=== PATIENT | female | born 1965 | race Caucasian/White ===

== ENCOUNTER 2018-03-24 12:19 | Observation (INO) | payer OTHER ==
[2018-03-24 12:28] VITALS: BMI 23.6
--- NOTE | 2018-03-24 12:49 | PDOC ---
History of Present Illness - General Chief Complaint: Palpitations Stated Complaint: PALPITATIONS, LT ARM NUMBNESS Time Seen by Provider: 03/24/18 12:49 History Source: Patient Exam Limitations: No Limitations - History of Present Illness Initial Comments: 03/24/18 13:13 CHIEF COMPLAINT: Chest pain HISTORY OF PRESENT ILLNESS: This is a 52-year-old female, current smoker with [id number] diabetes and hypercholesterolemia who presents complaining of 3 days of chest pain, left arm numbness, palpitations, and intermittent headaches. She reports that symptoms became much worse last night. She denies shortness of breath, focal weakness, change in speech or facial symmetry, or any other symptoms. She does report bilateral leg "cramping" worse with walking. She denies recent travel,/trauma/surgery. She has no family history of heart disease, CVA, or hypercoagulable state. Vital signs on arrival notable only for mild hypertension: 141/92. Patient's PCP is Dr. Samuels. She saw him in the office today and he sent her to the ED for further evaluation. 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 No weakness. No weight change. HEAD, EYES, EARS, NOSE AND THROAT: No change in vision. No ear pain or discharge. No sore throat. CARDIOVASCULAR: Chest pain, palpitations. RESPIRATORY: No cough, wheezing, or shortness of breath. GASTROINTESTINAL: No nausea, vomiting, diarrhea or constipation. GENITOURINARY: No dysuria, frequency, or change in urination. MUSCULOSKELETAL: No joint or muscle swelling or pain. No neck or back pain. SKIN: No rash or easy bruising. NEUROLOGIC: Intermittent, generalized headaches. Left arm numbness. vertigo, loss of consciousness, or loss of sensation. PSYCHIATRIC: No depression or anxiety. ENDOCRINE: No increased thirst. No abnormal weight change. HEMATOLOGIC/LYMPHATIC: No anemia, easy bleeding, or history of blood clots. ALLERGIC/IMMUNOLOGIC: No hives or skin allergy. No latex allergy. PHYSICAL EXAM: GENERAL: The patient is awake, alert, and fully oriented, in no acute distress. ENT: Pupils equal, round and reactive to light, extraocular movements intact, sclera anicteric, conjunctiva clear. Neck supple. LUNGS: Clear to auscultation bilaterally. Normal excursion. No respiratory distress or use of accessory muscles. CV: RRR, S1/S2, no MRG. Cap refill < 2 sec. ABDOMEN: Soft, non-distended, non-tender. EXTREMITIES: Normal range of motion, no edema. NEUROLOGICAL: Normal speech, normal gait. CN II-XII grossly intact. NIHSS=1 ( subjective decreased sensation left arm). PSYCH: Normal mood, normal affect. SKIN: Warm, dry, normal turgor, no rashes or lesions noted. Past History - Past Medical History Allergies/Adverse Reactions: Allergies Allergy/AdvReac Type Severity Reaction Status Date / Time No Known Drug Allergies Allergy Verified 03/24/18 12:28 Home Medications: Ambulatory Orders Atorvastatin Calcium 20 mg PO DAILY 03/24/18 Metformin HCl [Glucophage] 500 mg PO DAILY 03/24/18 COPD: No Diabetes: Yes (type 2) Disorders: Yes (kidney stones) HTN: Yes Hypercholesterolemia: Yes Kidney Stones: Yes - Surgical History Abdominal Surgery: Yes - Immunization History Immunization Up to Date: Yes - Suicide/Smoking/Psychosocial Hx Smoking Status: No Smoking History: Current every day smoker Have you smoked in the past 12 months: Yes Number of Cigarettes Smoked Daily: 5 Information on smoking cessation initiated: No 'Breaking Loose' booklet given: 06/14/15 Hx Alcohol Use: No Drug/Substance Use Hx: No Substance Use Type: None Hx Substance Use Treatment: No *Physical Exam - Vital Signs Last Vital Signs Temp Pulse Resp BP Pulse Ox 97.8 F 78 18 142/91 99 03/24/18 12:25 03/24/18 12:25 03/24/18 12:25 03/24/18 12:25 03/24/18 12:25 Heart Score/ECG Review - History History: Slightly suspicious - Electrocardiogram EKG: Normal - Age Age: 45-65 - Risk Factors Risk Factors Heart Score: Yes Hx Hypercholesterolemia, Yes Hx Diabetes, Yes Smoking History Based on the list above the patient has:: >/=3 risk factors or Hx atherosclerotic disease - Troponin Troponin: </= normal limit - Score Heart Score - Total: 3 - ECG Intrepretation Comment:: 03/24/18 13:43 Normal sinus rhythm, [address] or T-wave changes. ED Treatment Course - LABORATORY CBC & Chemistry Diagram: 03/24/18 13:09 03/24/18 13:09 Medical Decision Making - Medical Decision Making 03/24/18 13:18 A/P: 52 year old female with multiple symptoms including chest pain, left arm numbness, palpitations, pleuritic pain, and headaches. NIHSS=1, onset x 3 days ago. Multiple cardiac RFs. 1. EKG 2. Labs including CBC, CMP, TSH, PT/INR, troponin, d-dimer (low risk by Wells), UA 3. CXR 4. CT brain 5. Re-evaluate 03/24/18 14:07 Trop neg x 1. 03/24/18 14:31 CT brain neg. CXR neg. 03/24/18 15:41 UA neg. 03/24/18 15:43 Given multiple RFs, will request observation to complete MELY. D-dimer is pending (QC issue with lab) and will need to be followed up. *DC/Admit/Observation/Transfer Diagnosis at time of Disposition: Left arm numbness, Palpitations Chest pain Qualifiers: Chest pain type: precordial pain Qualified Code(s): R07.2 - Precordial pain - Discharge Dispostion Condition at time of disposition: Guarded Decision to Admit order: Yes - Referrals Referrals: Stefania Samuels [Primary Care Provider] - - Patient Instructions - Post Discharge Activity
[2018-03-24 13:24] LABS: BASO % 0.7 % (0-2.0); EOS % 1.6 % (0-4.5); HEMATOCRIT 31.4 % (32.4-45.2); HEMOGLOBIN 10.2 GM/dL (10.7-15.3); LYMPH % 40.1 % (8-40); MCH 26.9 pg (25.7-33.7); MCHC 32.3 g/dl (32.0-36.0); MEAN CELL VOLUME 83.4 fl (80-96); MEAN PLT VOLUME 7.1 fl (7.5-11.1); NEUT % 51.6 % (42.8-82.8); PLATELET COUNT 316 K/MM3 (134-434); RBC 3.77 M/mm3 (3.60-5.2); WHITE BLOOD COUNT 7.6 K/mm3 (4.0-10.0)
[2018-03-24 13:38] LABS: INR 0.93 (0.83-1.09); PROTHROMBIN TIME (PATIENT) 10.5 SEC (9.7-13.0)
[2018-03-24 13:46] LABS: ALBUMIN 3.8 g/dl (3.4-5.0); ALK PHOS 96 U/L (45-117); ANION GAP 5 (8-16); BILIRUBIN,TOTAL 0.2 mg/dL (0.2-1.0); BLOOD UREA NITROGEN 12 mg/dL (7-18); CALCIUM 9.1 mg/dL (8.5-10.1); CHLORIDE 107 mmol/L (98-107); CO2 28 mmol/L (21-32); CREATININE 0.7 mg/dL (0.55-1.02); GLUCOSE,RANDOM 87 mg/dL (74-106); POTASSIUM 4.1 mmol/L (3.5-5.1); SGOT/AST 20 U/L (15-37); SGPT/ALT 25 U/L (12-78); SODIUM 140 mmol/L (136-145); TOT PROT 7.3 g/dl (6.4-8.2)
--- NOTE | 2018-03-24 14:33 | PDOC ---
*Physical Exam - Vital Signs Last Vital Signs Temp Pulse Resp BP Pulse Ox 97.8 F 78 18 142/91 99 03/24/18 12:25 03/24/18 12:25 03/24/18 12:25 03/24/18 12:25 03/24/18 12:25 ED Treatment Course - LABORATORY CBC & Chemistry Diagram: 03/25/18 05:30 03/24/18 13:09 - ADDITIONAL ORDERS Additional order review: Laboratory Results 03/24/18 03/24/18 03/24/18 13:09 13:09 13:09 PT with INR 10.50 INR 0.93 Sodium 140 Potassium 4.1 Chloride 107 Carbon Dioxide 28 Anion Gap 5 L BUN 12 Creatinine 0.7 Creat Clearance w eGFR > 60 Random Glucose 87 Calcium 9.1 Total Bilirubin 0.2 AST 20 ALT 25 Alkaline Phosphatase 96 Troponin I < 0.02 Total Protein 7.3 Albumin 3.8 TSH 0.42 03/24/18 13:09 RBC 3.77 MCV 83.4 MCHC 32.3 RDW 16.0 H MPV 7.1 L D Neutrophils % 51.6 Lymphocytes % 40.1 H Monocytes % 6.0 Eosinophils % 1.6 Basophils % 0.7 Medical Decision Making - Medical Decision Making 03/24/18 14:32 Case discussed with MARICRUZ Dickerson. Case as per MARICRUZ Dickerson. *DC/Admit/Observation/Transfer Diagnosis at time of Disposition: Chest pain, Left arm numbness, Palpitations - Discharge Dispostion Condition at time of disposition: Guarded - Referrals - Patient Instructions - Post Discharge Activity
[2018-03-24 15:32] LABS: URINE APPEARANCE CLEAR; URINE BILIRUBIN NEGATIVE (<2.0 mg/dL); URINE COLOR LTYELLOW; URINE GLUCOSE (UA) NEGATIVE (NEGATIVE); URINE KETONE NEGATIVE (NEGATIVE); URINE LEUK ESTERASE NEGATIVE (NEGATIVE); URINE NITRITE NEGATIVE (NEGATIVE); URINE PROTEIN NEGATIVE (NEGATIVE); URINE UROBILINOGEN NEGATIVE mg/dL (0.2-1.0)
[2018-03-24] MEDS ORDERED: ASPIRIN 81 MG CHEWABLE TABLETS PO ONE (15:53)
--- NOTE | 2018-03-24 16:24 | HP ---
Admitting History and Physical - Primary Care Physician PCP: Patrick Samuels - Admission Chief Complaint: chest pain History of Present Illness: HPI This is a 52 year old female with pmhx of HTN, HLD, DM II presented to the ED with left sided chest pain x3 days however, worsened today with a feeling of being unwell. Pt reports chest pain with palpitations referring to LUE with numbness. She states she has been having some R sided back/flank pain which refers across below right breast. Per ED report pt endorses b/l leg cramping which worsens with walking and described a pleuretic chest pain Pt has hx of smoking. She was sent in by her PCP today. Currently denies sob, palpitations, or back pain, n/v. HARRT score 3 History Source: Patient Limitations to Obtaining History: No Limitations - Past Medical History Cardiovascular: Yes: HTN, Hyperlipdemia Renal/: Yes: Renal Calculi ENT: Yes: Other (recurrent sore throat) Endocrine: Yes: Diabetes Mellitus - Past Surgical History Past Surgical History: Yes: Oopherectomy - Smoking History Smoking history: Current every day smoker Have you smoked in the past 12 months: Yes Aproximately how many cigarettes per day: 5 - Alcohol/Substance Use Hx Alcohol Use: No History of Substance Use: reports: None - Social History ADL: Independent History of Recent Travel: No Home Medications - Allergies Allergies/Adverse Reactions: Allergies Allergy/AdvReac Type Severity Reaction Status Date / Time No Known Drug Allergies Allergy Verified 03/24/18 12:28 - Home Medications Home Medications: Ambulatory Orders Atorvastatin Calcium 20 mg PO DAILY 03/24/18 Metformin HCl [Glucophage] 500 mg PO DAILY 03/24/18 Review of Systems - Review of Systems Constitutional: reports: Lethargy Eyes: reports: No Symptoms HENT: reports: No Symptoms Neck: reports: No Symptoms Cardiovascular: reports: Chest Pain, Palpitations Respiratory: reports: SOB Gastrointestinal: reports: Abdominal Pain Genitourinary: reports: No Symptoms Musculoskeletal: reports: Back Pain (r sided) Integumentary: reports: No Symptoms Neurological: reports: Numbness (LUE) Endocrine: reports: No Symptoms Hematology/Lymphatic: reports: No Symptoms Psychiatric: reports: No Symptoms Physical Examination Vital Signs: Vital Signs Temperature 97.8 F 03/24/18 12:25 Pulse Rate 78 03/24/18 12:25 Respiratory Rate 18 08/04/18 12:25 Blood Pressure 142/91 03/24/18 12:25 O2 Sat by Pulse Oximetry (%) 99 03/24/18 12:25 Constitutional: Yes: Well Nourished Eyes: Yes: Conjunctiva Clear HENT: Yes: Atraumatic Neck: Yes: Supple Cardiovascular: Yes: Regular Rate and Rhythm, S1, S2 Respiratory: Yes: Regular, CTA Bilaterally Gastrointestinal: Yes: Normal Bowel Sounds, Soft Renal/: Yes: WNL Musculoskeletal: Yes: WNL Extremities: Yes: WNL Edema: No Integumentary: Yes: WNL Neurological: Yes: Alert, Oriented, Cran Nerves II-XII Intact Labs: CBC, BMP 03/24/18 13:09 03/24/18 13:09 Imaging - Results Chest X-ray: Report Reviewed, Image Reviewed Cat Scan: Report Reviewed Problem List - Problems (1) Chest pain Code(s): R07.9 - CHEST PAIN, UNSPECIFIED Qualifiers: Chest pain type: precordial pain Qualified Code(s): R07.2 - Precordial pain (2) Left arm numbness Code(s): R20.0 - ANESTHESIA OF SKIN (3) Palpitations Code(s): R00.2 - PALPITATIONS (4) Diabetes Code(s): E11.9 - TYPE 2 DIABETES MELLITUS WITHOUT COMPLICATIONS Qualifiers: Diabetes mellitus type: type 2 Diabetes mellitus complication status: without complication Qualified Code(s): E11.9 - Type 2 diabetes mellitus without complications (5) Hyperlipidemia Code(s): E78.5 - HYPERLIPIDEMIA, UNSPECIFIED Qualifiers: Hyperlipidemia type: unspecified hyperlipidemia Assessment/Plan Assessment: 52 year old female admitted with chest pain Plan: 1. Chest pain, r/o PE - Trop x1 neg, cycle serial CE - ECHO - Lipid panel - TSH negative - Telemetry monitoring - Elevated D Dimer, CTA ordered 2. HTN - On no meds - Would start KACY for SBP<140 3. HLD - Resume Statin 4. DM II - ISS, BGM ACHS Visit type - Emergency Visit Emergency Visit: Yes ED Registration Date: 03/24/18 Care time: The patient presented to the Emergency Department on the above date and was hospitalized for further evaluation of their emergent condition. - New Patient This patient is new to me today: Yes Date on this admission: 03/24/18 - Critical Care Critical Care patient: No Hospitalist Screening - Colonoscopy Questionnaire Colonoscopy Questionnaire: Colonoscopy Questionnaire - Patient: 50 - 75 years old and never had a screening colonoscopy: Unknown History of colon or rectal polyps, or CA: Unknown History of IBD, Crohn's disease or UC: Unknown History of abdominal radiation therapy as a child: Unknown - Relative: 1 with colon or rectal CA, or polyps at age 60 or younger: Unknown Colon or rectal CA diagnosed at age 45 or younger: Unknown Multiple relatives with colon or rectal CA: Unknown - Outcome: Screening Result: Negative Screen
[2018-03-24] MEDS ORDERED: ASPIRIN 81 MG CHEWABLE TABLETS ONE (17:31)
[2018-03-24] MEDS: INSULIN SLIDING SCALE (NOVOLOG) 1 VIAL SQ SCH (22:30)
[2018-03-24] MEDS ORDERED: INSULIN (NOVOLOG) ASPART 100 UNITS/ML 10ML VIAL ONE (22:32)
[2018-03-25] MEDS: INSULIN SLIDING SCALE (NOVOLOG) 1 VIAL SQ SCH ×4 (06:18→21:48)
[2018-03-25 07:34] LABS: BASO % 0.8 % (0-2.0); EOS % 1.5 % (0-4.5); HEMATOCRIT 30.2 % (32.4-45.2); HEMOGLOBIN 9.9 GM/dL (10.7-15.3); LYMPH % 36.6 % (8-40); MCH 27.2 pg (25.7-33.7); MCHC 32.7 g/dl (32.0-36.0); MEAN CELL VOLUME 83.3 fl (80-96); MEAN PLT VOLUME 7.8 fl (7.5-11.1); MONO % 5.9 % (3.8-10.2); NEUT % 55.2 % (42.8-82.8); PLATELET COUNT 307 K/MM3 (134-434); RBC 3.62 M/mm3 (3.60-5.2); RDW 15.6 % (11.6-15.6); WHITE BLOOD COUNT 8.8 K/mm3 (4.0-10.0)
[2018-03-25 07:56] LABS: ALBUMIN 3.3 g/dl (3.4-5.0); ANION GAP 1 (8-16); BILIRUBIN,TOTAL 0.2 mg/dL (0.2-1.0); BLOOD UREA NITROGEN 12 mg/dL (7-18); CALCIUM 8.8 mg/dL (8.5-10.1); CHLORIDE 106 mmol/L (98-107); CO2 33 mmol/L (21-32); CREATININE 0.7 mg/dL (0.55-1.02); GLUCOSE,RANDOM 100 mg/dL (74-106); MAGNESIUM 2.1 mg/dL (1.8-2.4); PHOSPHOROUS 5.2 mg/dL (2.5-4.9); SGOT/AST 17 U/L (15-37); SGPT/ALT 20 U/L (12-78); SODIUM 140 mmol/L (136-145); TOT PROT 6.4 g/dl (6.4-8.2)
[2018-03-25 07:57] LABS: ALK PHOS 85 U/L (45-117)
[2018-03-25 08:16] LABS: CHOLESTEROL 138 mg/dL (50-200); HDL CHOLESTEROL 38 mg/dL (40-60); TRIGLYCERIDES 85 mg/dL (35-160)
--- NOTE | 2018-03-25 08:58 | EKG ---
Test Reason : Blood Pressure : / mmHG Vent. Rate : 073 BPM Atrial Rate : 073 BPM P-R Int : 122 ms QRS Dur : 080 ms QT Int : 372 ms P-R-T Axes : 046 058 061 degrees QTc Int : 409 ms NORMAL SINUS RHYTHM NORMAL ECG WHEN COMPARED WITH ECG OF 04-SEP-2017 10:51, PREMATURE ATRIAL COMPLEXES ARE NO LONGER PRESENT Confirmed by YUKI CAMERON MD ([id number]) on 03/25/2018 8:58:00 AM Referred By: Confirmed By:YUKI CAMERON MD
[2018-03-25] MEDS: ENOXAPARIN NA (PORCINE) 40 MG/0.4 ML DISP.SYRIN SQ SCH (09:29)
[2018-03-25] MEDS ORDERED: LISINOPRIL 5 MG TABLET (FP) PO SCH (10:00)
--- NOTE | 2018-03-25 15:39 | PN ---
Physical Exam: SUBJECTIVE: Patient seen and examined. She continues to have left sided chest pain. States some RLE leg cramping. OBJECTIVE: Vital Signs Period Temp Pulse Resp BP Sys/Bianchi Pulse Ox Last 24 Hr 97.8 F-98.4 F 64-78 16-20 105-147/54-77 97-100 PE Neuro: alert, awake, cn 2-12intact Pulm: CTAB CV: S1 s2 rrr Abd: s nt nd + bs Ext: R calf soreness to palpation no swelling, erythema, full rom Laboratory Results - last 24 hr 03/24/18 03/24/18 03/24/18 15:19 19:19 22:25 WBC RBC Hgb Hct MCV MCH MCHC RDW Plt Count MPV Absolute Neuts (auto) Neutrophils % Lymphocytes % Monocytes % Eosinophils % Basophils % Nucleated RBC % Sodium Potassium Chloride Carbon Dioxide Anion Gap BUN Creatinine Creat Clearance w eGFR POC Glucometer [phone] Random Glucose Hemoglobin A1c % Calcium Phosphorus Magnesium Total Bilirubin AST ALT Alkaline Phosphatase Creatine Kinase 126 Troponin I < 0.02 Total Protein Albumin Triglycerides Cholesterol Total LDL Cholesterol HDL Cholesterol Urine Color Ltyellow Urine Appearance Clear Urine pH 6.0 Ur Specific [place] 1.013 Urine Protein Negative Urine Glucose (UA) Negative Urine Ketones Negative Urine Blood Negative Urine Nitrite Negative Urine Bilirubin Negative Urine Urobilinogen Negative Ur Leukocyte Esterase Negative 03/25/18 03/25/18 03/25/18 00:25 01:13 05:30 WBC 8.8 RBC 3.62 Hgb 9.9 L Hct 30.2 L MCV 83.3 MCH 27.2 MCHC 32.7 RDW 15.6 Plt Count 307 MPV 7.8 Absolute Neuts (auto) 4.9 Neutrophils % 55.2 Lymphocytes % 36.6 Monocytes % 5.9 Eosinophils % 1.5 Basophils % 0.8 Nucleated RBC % 0 Sodium Potassium Chloride Carbon Dioxide Anion Gap BUN Creatinine Creat Clearance w eGFR POC Glucometer 56 212 Random Glucose Hemoglobin A1c % Calcium Phosphorus Magnesium Total Bilirubin AST ALT Alkaline Phosphatase Creatine Kinase Troponin I Total Protein Albumin Triglycerides Cholesterol Total LDL Cholesterol HDL Cholesterol Urine Color Urine Appearance Urine pH Ur Specific [place] Urine Protein Urine Glucose (UA) Urine Ketones Urine Blood Urine Nitrite Urine Bilirubin Urine Urobilinogen Ur Leukocyte Esterase 03/25/18 03/25/18 03/25/18 05:30 05:30 05:30 WBC RBC Hgb Hct MCV MCH MCHC RDW Plt Count MPV Absolute Neuts (auto) Neutrophils % Lymphocytes % Monocytes % Eosinophils % Basophils % Nucleated RBC % Sodium 140 Potassium 5.0 Chloride 106 Carbon Dioxide 33 H Anion Gap 1 L BUN 12 Creatinine 0.7 Creat Clearance w eGFR > 60 POC Glucometer Random Glucose 100 Hemoglobin A1c % 8.2 H Calcium 8.8 Phosphorus 5.2 H Magnesium 2.1 Total Bilirubin 0.2 AST 17 ALT 20 Alkaline Phosphatase 85 D Creatine Kinase 103 Troponin I < 0.02 Total Protein 6.4 Albumin 3.3 L Triglycerides 85 Cholesterol 138 Total LDL Cholesterol 96 HDL Cholesterol 38 L Urine Color Urine Appearance Urine pH Ur Specific [place] Urine Protein Urine Glucose (UA) Urine Ketones Urine Blood Urine Nitrite Urine Bilirubin Urine Urobilinogen Ur Leukocyte Esterase Active Medications Generic Name Dose Route Start Last Admin Trade Name Paulq PRN Reason Stop Dose Admin Atorvastatin Calcium 20 mg 03/25/18 22:00 Lipitor - PO HS [facility] Enoxaparin Sodium 40 mg 03/25/18 10:00 03/25/18 09:29 Lovenox - SQ 40 mg DAILY [facility] Administration Insulin Aspart 1 vial 03/24/18 22:00 03/25/18 14:47 Novolog Vial Sliding Scale - SQ Not Given [facility] Protocol Lisinopril 5 mg 03/25/18 10:00 03/25/18 09:30 Prinivil PO 5 mg DAILY [facility] Administration Assessment: 52 year old female admitted with chest pain Plan: 1. Chest pain, r/o PE - Serial trops neg - Cont to have intermitted chest pain - Stress test in AM - ECHO - Lipid panel reviewed - CTA neg for PE 2. HTN - On no meds - Started low dose KACY 2.5mg daily 3. HLD - Resume Statin 4. DM II - ISS, BGM ACHS - Hgb a1c 8.2 - Will like need additional po antidiabetic on DC Problem List - Problems (1) Chest pain Code(s): R07.9 - CHEST PAIN, UNSPECIFIED Qualifiers: Chest pain type: precordial pain Qualified Code(s): R07.2 - Precordial pain (2) Left arm numbness Code(s): R20.0 - ANESTHESIA OF SKIN (3) Palpitations Code(s): R00.2 - PALPITATIONS (4) Diabetes Code(s): E11.9 - TYPE 2 DIABETES MELLITUS WITHOUT COMPLICATIONS Qualifiers: Diabetes mellitus type: type 2 Diabetes mellitus complication status: without complication Qualified Code(s): E11.9 - Type 2 diabetes mellitus without complications (5) Hyperlipidemia Code(s): E78.5 - HYPERLIPIDEMIA, UNSPECIFIED Qualifiers: Hyperlipidemia type: unspecified hyperlipidemia Visit type - Emergency Visit Emergency Visit: Yes ED Registration Date: 03/24/18 Care time: The patient presented to the Emergency Department on the above date and was hospitalized for further evaluation of their emergent condition. - New Patient This patient is new to me today: No - Critical Care Critical Care patient: No
[2018-03-25] MEDS ORDERED: ATORVASTATIN CA 20 MG TABLET (FP) PO SCH (22:00)
[2018-03-26] MEDS: INSULIN SLIDING SCALE (NOVOLOG) 1 VIAL SQ SCH ×3 (06:40→17:53)
--- NOTE | 2018-03-26 08:15 | CON.CARD ---
Consult Consult Specialty:: Cardiology Reason for Consultation:: chest pain - History of Present Illness History of Present Illness: This is a 52 year old female with pmhx of HTN, HLD, DM II presented to the ED with left sided chest pain x3 days however, worsened today with a feeling of being unwell. Pt reports chest pain with palpitations referring to LUE with numbness. She states she has been having some R sided back/flank pain which refers across below right breast. Per ED report pt endorses b/l leg cramping which worsens with walking and described a pleuretic chest pain Pt has hx of smoking. She was sent in by her PCP today. Currently denies sob, palpitations, or back pain, n/v. - History Source History Provided By: Patient, Medical Record - Past Medical History Cardio/Vascular: Yes: HTN, Hyperlipdemia Renal/: Yes: Renal Calculi ...: No ENT: Yes: Other (recurrent sore throat) Endocrine: Yes: Diabetes Mellitus - Past Surgical History Past Surgical History: Yes: Oopherectomy - Alcohol/Substance Use Hx Alcohol Use: No History of Substance Use: reports: None - Smoking History Smoking history: Current every day smoker Have you smoked in the past 12 months: Yes Aproximately how many cigarettes per day: 5 - Social History ADL: Independent History of Recent Travel: No Home Medications - Allergies Allergies/Adverse Reactions: Allergies Allergy/AdvReac Type Severity Reaction Status Date / Time No Known Drug Allergies Allergy Verified 03/24/18 12:28 - Home Medications Home Medications: Ambulatory Orders Atorvastatin Calcium 20 mg PO DAILY 03/24/18 Metformin HCl [Glucophage] 500 mg PO DAILY 03/24/18 Review of Systems - Review of Systems Constitutional: reports: No Symptoms Eyes: reports: No Symptoms HENT: reports: No Symptoms Neck: reports: No Symptoms Cardiovascular: reports: Chest Pain Gastrointestinal: reports: No Symptoms Genitourinary: reports: No Symptoms Breasts: reports: No Symptoms Reported Musculoskeletal: reports: No Symptoms Integumentary: reports: No Symptoms Neurological: reports: No Symptoms Endocrine: reports: No Symptoms Hematology/Lymphatic: reports: No Symptoms Psychiatric: reports: No Symptoms Vital Signs: Vital Signs Temperature 97.8 F 03/26/18 07:51 Pulse Rate 70 03/26/18 07:51 Respiratory Rate 18 03/26/18 07:51 Blood Pressure 122/64 08/06/18 07:51 O2 Sat by Pulse Oximetry (%) 100 03/26/18 07:51 Constitutional: Yes: Well Nourished, No Distress, Calm Eyes: Yes: WNL, Conjunctiva Clear, EOM Intact HENT: Yes: WNL, Atraumatic, Normocephalic Neck: Yes: WNL, Supple, Trachea Midline Respiratory: Yes: WNL, Regular, CTA Bilaterally Gastrointestinal: Yes: WNL, Normal Bowel Sounds Renal/: Yes: WNL Cardiovascular: Yes: WNL, Regular Rate and Rhythm Musculoskeletal: Yes: WNL Extremities: Yes: WNL Integumentary: Yes: WNL Neurological: Yes: WNL, Alert, Oriented ...Motor Strength: WNL Psychiatric: Yes: WNL, Alert, Oriented - Other Data Labs, Other Data: CBC, BMP 03/25/18 05:30 03/25/18 05:30 INR, PTT INR 0.93 (0.83-1.09) 03/24/18 13:09 Troponin, BNP 03/25/18 05:30 Troponin I < 0.02 Troponin, BNP 03/25/18 05:30 Troponin I < 0.02 Imaging - Results Chest X-ray: Image Reviewed (wnl) EKG: Image Reviewed (nsr wnl) Problem List - Problems (1) Chest pain Code(s): R07.9 - CHEST PAIN, UNSPECIFIED Qualifiers: Chest pain type: precordial pain Qualified Code(s): R07.2 - Precordial pain (2) Left arm numbness Code(s): R20.0 - ANESTHESIA OF SKIN (3) Palpitations Code(s): R00.2 - PALPITATIONS (4) Diabetes Code(s): E11.9 - TYPE 2 DIABETES MELLITUS WITHOUT COMPLICATIONS Qualifiers: Diabetes mellitus type: type 2 Diabetes mellitus complication status: without complication Qualified Code(s): E11.9 - Type 2 diabetes mellitus without complications (5) Flank pain Code(s): R10.9 - UNSPECIFIED ABDOMINAL PAIN (6) History of kidney surgery Code(s): Z98.89 - OTHER SPECIFIED POSTPROCEDURAL STATES * DO NOT USE * (7) History of renal stent Code(s): Z98.89 - OTHER SPECIFIED POSTPROCEDURAL STATES * DO NOT USE * (8) Hyperglycemia Code(s): R73.9 - HYPERGLYCEMIA, UNSPECIFIED (9) Hyperlipidemia Code(s): E78.5 - HYPERLIPIDEMIA, UNSPECIFIED Qualifiers: Hyperlipidemia type: unspecified hyperlipidemia (10) Leukocytosis Code(s): D72.829 - ELEVATED WHITE BLOOD CELL COUNT, UNSPECIFIED (11) Paronychia Code(s): L03.019 - CELLULITIS OF UNSPECIFIED FINGER (12) Peritonsillar abscess Code(s): J36 - PERITONSILLAR ABSCESS (13) Pharyngitis Code(s): J02.9 - ACUTE PHARYNGITIS, UNSPECIFIED (14) Transaminitis Code(s): R74.0 - NONSPEC ELEV OF LEVELS OF TRANSAMNS & LACTIC ACID DEHYDRGNSE (15) Urinary tract infection Code(s): N39.0 - URINARY TRACT INFECTION, SITE NOT SPECIFIED Qualifiers: Urinary tract infection type: acute cystitis Hematuria presence: without hematuria Qualified Code(s): N30.00 - Acute cystitis without hematuria (16) Uvulitis Code(s): K12.2 - CELLULITIS AND ABSCESS OF MOUTH (17) Viral pharyngitis Code(s): J02.9 - ACUTE PHARYNGITIS, UNSPECIFIED Assessment/Plan cp sx r/o mi neg htn dm plan telemetry asa echo mibi st keep ldl below 70
[2018-03-26] MEDS ORDERED: LISINOPRIL 5 MG TABLET (FP) PO SCH (10:00)
--- NOTE | 2018-03-26 11:28 | PN ---
Progress Note, Physician History of Present Illness: This is a 52 year old female with pmhx of HTN, HLD, DM II presented to the ED with left sided chest pain x3 days however, worsened today with a feeling of being unwell. Pt reports chest pain with palpitations referring to LUE with numbness. She states she has been having some R sided back/flank pain which refers across below right breast. Per ED report pt endorses b/l leg cramping which worsens with walking and described a pleuretic chest pain Pt has hx of smoking. She was sent in by her PCP today. Currently denies sob, palpitations, or back pain, n/v. - Current Medication List Current Medications: Active Medications Atorvastatin Calcium (Lipitor -) 20 mg PO HS [facility] Last Admin: 03/25/18 21:47 Dose: 20 mg Enoxaparin Sodium (Lovenox -) 40 mg SQ DAILY [facility] Last Admin: 03/25/18 09:29 Dose: 40 mg Insulin Aspart (Novolog Vial Sliding Scale -) 1 vial SQ [facility]; Protocol Last Admin: 03/26/18 06:40 Dose: Not Given Lisinopril (Prinivil) 2.5 mg PO DAILY [facility] - Objective Vital Signs: Vital Signs Temperature 97.8 F 03/26/18 07:51 Pulse Rate 70 03/26/18 07:51 Respiratory Rate 18 03/26/18 07:51 Blood Pressure 122/64 03/26/18 07:51 O2 Sat by Pulse Oximetry (%) 100 03/26/18 07:51 Eyes: Yes: WNL, Conjunctiva Clear, EOM Intact HENT: Yes: WNL, Atraumatic, Normocephalic Neck: Yes: WNL, Supple, Trachea Midline Cardiovascular: Yes: WNL, Regular Rate and Rhythm Respiratory: Yes: WNL, Regular, CTA Bilaterally Gastrointestinal: Yes: WNL, Normal Bowel Sounds Genitourinary: Yes: WNL Musculoskeletal: Yes: WNL Extremities: Yes: WNL Edema: No Integumentary: Yes: WNL Neurological: Yes: WNL, Alert, Oriented ...Motor Strength: WNL Psychiatric: Yes: WNL Labs: CBC, BMP 03/25/18 05:30 03/25/18 05:30 INR, PTT INR 0.93 (0.83-1.09) 03/24/18 13:09 Laboratory Tests 03/24/18 03/24/18 03/24/18 13:09 13:09 13:09 WBC 7.6 RBC 3.77 Hgb 10.2 L Hct 31.4 L D MCV 83.4 MCH 26.9 D MCHC 32.3 RDW 16.0 H Plt Count 316 D MPV 7.1 L D Absolute Neuts (auto) 3.9 Neutrophils % 51.6 Lymphocytes % 40.1 H Monocytes % 6.0 Eosinophils % 1.6 Basophils % 0.7 Nucleated RBC % 0 PT with INR 10.50 INR 0.93 Sodium 140 Potassium 4.1 Chloride 107 Carbon Dioxide 28 Anion Gap 5 L BUN 12 Creatinine 0.7 Creat Clearance w eGFR > 60 POC Glucometer Random Glucose 87 Hemoglobin A1c % Calcium 9.1 Phosphorus Magnesium Total Bilirubin 0.2 AST 20 ALT 25 Alkaline Phosphatase 96 Creatine Kinase Troponin I Total Protein 7.3 Albumin 3.8 Triglycerides Cholesterol Total LDL Cholesterol HDL Cholesterol TSH Urine Color Urine Appearance Urine pH Ur Specific [place] Urine Protein Urine Glucose (UA) Urine Ketones Urine Blood Urine Nitrite Urine Bilirubin Urine Urobilinogen Ur Leukocyte Esterase 03/24/18 03/24/18 03/24/18 13:09 15:19 19:19 WBC RBC Hgb Hct MCV MCH MCHC RDW Plt Count MPV Absolute Neuts (auto) Neutrophils % Lymphocytes % Monocytes % Eosinophils % Basophils % Nucleated RBC % PT with INR INR Sodium Potassium Chloride Carbon Dioxide Anion Gap BUN Creatinine Creat Clearance w eGFR POC Glucometer Random Glucose Hemoglobin A1c % Calcium Phosphorus Magnesium Total Bilirubin AST ALT Alkaline Phosphatase Creatine Kinase 126 Troponin I < 0.02 < 0.02 Total Protein Albumin Triglycerides Cholesterol Total LDL Cholesterol HDL Cholesterol TSH 0.42 Urine Color Ltyellow Urine Appearance Clear Urine pH 6.0 Ur Specific [place] 1.013 Urine Protein Negative Urine Glucose (UA) Negative Urine Ketones Negative Urine Blood Negative Urine Nitrite Negative Urine Bilirubin Negative Urine Urobilinogen Negative Ur Leukocyte Esterase Negative 03/24/18 03/25/18 03/25/18 22:25 00:25 01:13 WBC RBC Hgb Hct MCV MCH MCHC RDW Plt Count MPV Absolute Neuts (auto) Neutrophils % Lymphocytes % Monocytes % Eosinophils % Basophils % Nucleated RBC % PT with INR INR Sodium Potassium Chloride Carbon Dioxide Anion Gap BUN Creatinine Creat Clearance w eGFR POC Glucometer [phone] 56 212 Random Glucose Hemoglobin A1c % Calcium Phosphorus Magnesium Total Bilirubin AST ALT Alkaline Phosphatase Creatine Kinase Troponin I Total Protein Albumin Triglycerides Cholesterol Total LDL Cholesterol HDL Cholesterol TSH Urine Color Urine Appearance Urine pH Ur Specific [place] Urine Protein Urine Glucose (UA) Urine Ketones Urine Blood Urine Nitrite Urine Bilirubin Urine Urobilinogen Ur Leukocyte Esterase 03/25/18 03/25/18 03/25/18 05:30 05:30 05:30 WBC 8.8 RBC 3.62 Hgb 9.9 L Hct 30.2 L MCV 83.3 MCH 27.2 MCHC 32.7 RDW 15.6 Plt Count 307 MPV 7.8 Absolute Neuts (auto) 4.9 Neutrophils % 55.2 Lymphocytes % 36.6 Monocytes % 5.9 Eosinophils % 1.5 Basophils % 0.8 Nucleated RBC % 0 PT with INR INR Sodium 140 Potassium 5.0 Chloride 106 Carbon Dioxide 33 H Anion Gap 1 L BUN 12 Creatinine 0.7 Creat Clearance w eGFR > 60 POC Glucometer Random Glucose 100 Hemoglobin A1c % Calcium 8.8 Phosphorus 5.2 H Magnesium 2.1 Total Bilirubin 0.2 AST 17 ALT 20 Alkaline Phosphatase 85 D Creatine Kinase 103 Troponin I < 0.02 Total Protein 6.4 Albumin 3.3 L Triglycerides 85 Cholesterol 138 Total LDL Cholesterol 96 HDL Cholesterol 38 L TSH Urine Color Urine Appearance Urine pH Ur Specific [place] Urine Protein Urine Glucose (UA) Urine Ketones Urine Blood Urine Nitrite Urine Bilirubin Urine Urobilinogen Ur Leukocyte Esterase 03/25/18 03/25/18 03/25/18 05:30 05:31 12:01 WBC RBC Hgb Hct MCV MCH MCHC RDW Plt Count MPV Absolute Neuts (auto) Neutrophils % Lymphocytes % Monocytes % Eosinophils % Basophils % Nucleated RBC % PT with INR INR Sodium Potassium Chloride Carbon Dioxide Anion Gap BUN Creatinine Creat Clearance w eGFR POC Glucometer 121 127 Random Glucose Hemoglobin A1c % 8.2 H Calcium Phosphorus Magnesium Total Bilirubin AST ALT Alkaline Phosphatase Creatine Kinase Troponin I Total Protein Albumin Triglycerides Cholesterol Total LDL Cholesterol HDL Cholesterol TSH Urine Color Urine Appearance Urine pH Ur Specific [place] Urine Protein Urine Glucose (UA) Urine Ketones Urine Blood Urine Nitrite Urine Bilirubin Urine Urobilinogen Ur Leukocyte Esterase 03/25/18 03/25/18 03/26/18 16:52 21:47 09:10 WBC RBC Hgb Hct MCV MCH MCHC RDW Plt Count MPV Absolute Neuts (auto) Neutrophils % Lymphocytes % Monocytes % Eosinophils % Basophils % Nucleated RBC % PT with INR INR Sodium Potassium Chloride Carbon Dioxide Anion Gap BUN Creatinine Creat Clearance w eGFR POC Glucometer 121 207 120 Random Glucose Hemoglobin A1c % Calcium Phosphorus Magnesium Total Bilirubin AST ALT Alkaline Phosphatase Creatine Kinase Troponin I Total Protein Albumin Triglycerides Cholesterol Total LDL Cholesterol HDL Cholesterol TSH Urine Color Urine Appearance Urine pH Ur Specific [place] Urine Protein Urine Glucose (UA) Urine Ketones Urine Blood Urine Nitrite Urine Bilirubin Urine Urobilinogen Ur Leukocyte Esterase Problem List - Problems (1) Chest pain Code(s): R07.9 - CHEST PAIN, UNSPECIFIED Qualifiers: Chest pain type: precordial pain Qualified Code(s): R07.2 - Precordial pain (2) Left arm numbness Code(s): R20.0 - ANESTHESIA OF SKIN (3) Palpitations Code(s): R00.2 - PALPITATIONS (4) Diabetes Code(s): E11.9 - TYPE 2 DIABETES MELLITUS WITHOUT COMPLICATIONS Qualifiers: Diabetes mellitus type: type 2 Diabetes mellitus complication status: without complication Qualified Code(s): E11.9 - Type 2 diabetes mellitus without complications (5) Flank pain Code(s): R10.9 - UNSPECIFIED ABDOMINAL PAIN (6) History of kidney surgery Code(s): Z98.89 - OTHER SPECIFIED POSTPROCEDURAL STATES * DO NOT USE * (7) History of renal stent Code(s): Z98.89 - OTHER SPECIFIED POSTPROCEDURAL STATES * DO NOT USE * (8) Hyperglycemia Code(s): R73.9 - HYPERGLYCEMIA, UNSPECIFIED (9) Hyperlipidemia Code(s): E78.5 - HYPERLIPIDEMIA, UNSPECIFIED Qualifiers: Hyperlipidemia type: unspecified hyperlipidemia (10) Leukocytosis Code(s): D72.829 - ELEVATED WHITE BLOOD CELL COUNT, UNSPECIFIED (11) Paronychia Code(s): L03.019 - CELLULITIS OF UNSPECIFIED FINGER (12) Peritonsillar abscess Code(s): J36 - PERITONSILLAR ABSCESS (13) Pharyngitis Code(s): J02.9 - ACUTE PHARYNGITIS, UNSPECIFIED (14) Transaminitis Code(s): R74.0 - NONSPEC ELEV OF LEVELS OF TRANSAMNS & LACTIC ACID DEHYDRGNSE (15) Urinary tract infection Code(s): N39.0 - URINARY TRACT INFECTION, SITE NOT SPECIFIED Qualifiers: Urinary tract infection type: acute cystitis Hematuria presence: without hematuria Qualified Code(s): N30.00 - Acute cystitis without hematuria (16) Uvulitis Code(s): K12.2 - CELLULITIS AND ABSCESS OF MOUTH (17) Viral pharyngitis Code(s): J02.9 - ACUTE PHARYNGITIS, UNSPECIFIED Assessment/Plan cp sx r/o mi neg htn dm plan telemetry asa echo mibi st keep ldl below 70
[2018-03-26] MEDS: ENOXAPARIN NA (PORCINE) 40 MG/0.4 ML DISP.SYRIN SQ SCH (13:43)
[2018-03-26 14:37] VITALS: BP 134/71; PULSE 85; TEMP 98.6
--- NOTE | 2018-03-26 17:38 | ECHO ---
Name: ANUJ SHAY Exam:Adult Echocardiogram Study Date: 03/26/2018 03:21 PM Age: 52 yrs Reason For Study: chest pain Height: 65 in Weight: 142 lb BSA: 1.7 m2 MMode/2D Measurements & Calculations IVSd: 0.95 cm Ao root diam: 2.4 cm LVIDd: 4.1 cm LA dimension: 2.6 cm LVIDs: 2.8 cm LVPWd: 0.84 cm LVPWs: 1.3 cm EDV(Teich): 76.3 ml ESV(Teich): 29.1 ml Doppler Measurements & Calculations MV E max campos: 91.3 cm/sec Ao V2 max: 130.3 cm/sec MV A max campos: 80.9 cm/sec Ao max P.8 mmHg MV E/A: 1.1 MV dec time: 0.23 sec LV V1 max P.8 mmHg TR max campos: 212.2 cm/sec LV V1 max: 109.1 cm/sec TR max P.1 mmHg RVSP(TR): 28.1 mmHg PA V2 max: 89.6 cm/sec Med Peak E' Campos: 9.0 cm/sec PA max P.2 mmHg Med E/e': 10.2 Lat Peak E' Campos: 14.4 cm/sec Lat E/e': 6.4 RAP systole: 10.0 mmHg Left Ventricle The left ventricle is normal in size. Left ventricular systolic function is normal. Ejection Fraction = 60- 65%. No regional wall motion abnormalities noted. Right Ventricle The right ventricle is normal size. The right ventricular systolic function is normal. RV systolic TD I is 14 cm/s. Atria The left atrial size is normal. Right atrial size is normal. Mitral Valve There is mild mitral annular calcification. There is no mitral regurgitation noted. Tricuspid Valve The tricuspid valve is normal in structure and function. There is mild tricuspid regurgitation. Right ventricular systolic pressure is normal. Aortic Valve There is mild aortic sclerosis.;. No aortic regurgitation is present. Pulmonic Valve The pulmonic valve is not well visualized. Great Vessels The aortic root is normal size. Pericardium/Pleura There is no pericardial effusion. Interpretation Summary The left ventricle is normal in size. Left ventricular systolic function is normal. No regional wall motion abnormalities noted. Ejection Fraction = 60-65%. The right ventricular systolic function is normal. The left atrial size is normal. Right atrial size is normal. There is mild mitral annular calcification. There is mild tricuspid regurgitation. Right ventricular systolic pressure is normal. There is mild aortic sclerosis.; There is no pericardial effusion. Previous study is not available for comparison Nelson Stephenson MD 03/26/2018 05:38 PM
--- NOTE | 2018-03-26 18:00 | DS ---
Physical Exam: SUBJECTIVE: Patient seen and examined OBJECTIVE: Vital Signs Period Temp Pulse Resp BP Sys/Bianchi Pulse Ox Last 24 Hr 97.8 F-98.6 F 60-85 18-20 103-134/46-74 100-100 PHYSICAL EXAM GENERAL: The patient is awake, alert, and fully oriented, in no acute distress. HEAD: Normal with no signs of trauma. EYES: PERRL, extraocular movements intact, sclera anicteric, conjunctiva clear. ENT: Ears normal, nares patent, oropharynx clear without exudates, moist mucous membranes. NECK: Trachea midline, full range of motion, supple. LUNGS: Breath sounds equal, clear to auscultation bilaterally, no wheezes, no crackles, no accessory muscle use. HEART: Regular rate and rhythm, S1, S2 without murmur, rub or gallop. ABDOMEN: Soft, nontender, nondistended, normoactive bowel sounds, no guarding, no rebound, no hepatosplenomegaly, no masses. EXTREMITIES: 2+ pulses, warm, well-perfused, no edema. NEUROLOGICAL: Cranial nerves II through XII grossly intact. Normal speech, gait not observed. PSYCH: Normal mood, normal affect. SKIN: Warm, dry, normal turgor, no rashes or lesions noted. LABS Laboratory Results - last 24 hr 03/25/18 03/26/18 03/26/18 21:47 05:05 09:10 POC Glucometer 207 116 120 03/26/18 16:39 POC Glucometer 149 HOSPITAL COURSE: Date of Admission:03/24/18 Date of Discharge: 03/26/18 Minutes to complete discharge: 35 Discharge Summary Reason For Visit: CHEST PAIN Current Active Problems Chest pain (Acute) Left arm numbness (Acute) Palpitations (Acute) Condition: Guarded - Instructions Diet, Activity, Other Instructions: Your blood pressure was mildly elevated during your hospital stay. It is recommended you make an appointment with Dr. Samuels, your primary care provider within 72 hours to have your blood pressure checked. Return to the emergency department for any new or worsening symptoms. Referrals: Stefania Samuels [Primary Care Provider] - 1 Week - Home Medications Comprehensive Discharge Medication List: Ambulatory Orders Atorvastatin Calcium 20 mg PO DAILY 03/24/18 Metformin HCl [Glucophage] 500 mg PO DAILY 03/24/18
== END 2018-03-26 18:51 | disposition home or self-care (01) ==
LOC: JER 12:19 → JERBED 16:12 → J4W 03-25 01:04
PROVIDERS: ADMIT Hospitalist; ATTEND Nurse Practitioner Acute Care
PROC: 3E013GC Introduction of Other Therapeutic Substance into Subcutaneous Tissue, Percutaneous Approach (ICD-10-PCS; principal; 2018-03-24)
DX: R07.9 Chest pain, unspecified (principal); R20.0 Anesthesia of skin; R00.2 Palpitations; I10 Essential (primary) hypertension; E11.65 Type 2 diabetes mellitus with hyperglycemia; E78.5 Hyperlipidemia, unspecified; F17.210 Nicotine dependence, cigarettes, uncomplicated; D72.829 Elevated white blood cell count, unspecified; R74.0 Nonspecific elevation of levels of transaminase and lactic acid dehydrogenase [LDH]; Z87.442 Personal history of urinary calculi; Z79.84 Long term (current) use of oral hypoglycemic drugs
CPT/HCPCS: 36415; 70450-TC; 71046-TC-FY; 71275-TC; 78452-TC; 80053; 80061; 81003; 82550; 82962; 83036; 83721; 83735; 84100; 84443; 84484; 85025; 85379; 85610; 93005; 93010; 93017; 93306-TC; 93971-TC; 96372; 99285-25; A9502; G0378

== ENCOUNTER 2022-03-04 22:34 | Inpatient (IN) | payer OTHER ==
[2022-03-04 22:46] VITALS: BMI 20.3
[2022-03-05 00:57] LABS: BASO % 0.9 % (0-2.0); EOS % 0.8 % (0-4.5); HEMATOCRIT 37.7 % (32.4-45.2); HEMOGLOBIN 12.5 GM/dL (10.7-15.3); LYMPH % 11.9 % (8-40); MCH 31.5 pg (25.7-33.7); MCHC 33.3 g/dl (32.0-36.0); MEAN CELL VOLUME 94.5 fl (80-96); MEAN PLT VOLUME 7.3 fl (7.5-11.1); MONO % 6.6 % (3.8-10.2); NEUT % 79.8 % (42.8-82.8); PLATELET COUNT 316 10^3/uL (134-434); RBC 3.99 M/mm3 (3.60-5.2); RDW 13.2 % (11.6-15.6)
[2022-03-05 00:58] LABS: EPI CELLS 10 /uL (0-25.1); HYALINE CASTS 1 /uL (0-3.1); URINE APPEARANCE CLEAR; URINE BACTERIA 10 /uL (0-1359); URINE BILIRUBIN NEGATIVE (NEGATIVE); URINE COLOR YELLOW; URINE GLUCOSE (UA) NEGATIVE (NEGATIVE); URINE KETONE NEGATIVE (NEGATIVE); URINE LEUK ESTERASE 2+ (NEGATIVE); URINE NITRITE NEGATIVE (NEGATIVE); URINE PROTEIN NEGATIVE (NEGATIVE); URINE UROBILINOGEN 0.2 mg/dL (0.2-1.0); URINE WBC 129 /uL (0-25.8)
[2022-03-05 01:15] LABS: ALBUMIN 4.2 g/dl (3.4-5.0); CALCIUM 9.6 mg/dL (8.5-10.1)
[2022-03-05 01:19] LABS: CREATININE 0.8 mg/dL (0.55-1.3)
[2022-03-05 01:20] LABS: BILIRUBIN,TOTAL 0.3 mg/dL (0.2-1); TOT PROT 7.5 g/dl (6.4-8.2)
[2022-03-05] MEDS ORDERED: SODIUM CHLORIDE 0.9% 500 ML INFUS.BAG IV ONE (01:57)
[2022-03-05] MEDS ORDERED: CEFTRIAXONE 1 GM in DEXTROSE 5%-WATER - 50 ML IVPB ONE (01:58)
[2022-03-05] MEDS ORDERED: CEFTRIAXONE 1 GM/50 ML BAG ONE (02:19)
[2022-03-05] MEDS ORDERED: SODIUM CHLORIDE 1,000 ML IV SCH (03:15)
[2022-03-05 03:42] LABS: ACTIVATED PTT 35.8 SECONDS (25.2-36.5); INR 1.01 (0.83-1.09); PROTHROMBIN TIME (PATIENT) 11.6 SEC (9.7-13.0)
[2022-03-05] MEDS ORDERED: ACETAMINOPHEN 325 MG TABLET (FP) PO PRN (04:27)
[2022-03-05] MEDS: SODIUM CHLORIDE 1,000 ML IV SCH ×2 (04:57→22:05)
[2022-03-05] MEDS: INSULIN SLIDING SCALE (NOVOLOG) 1 VIAL SQ SCH ×4 (07:00→22:30)
[2022-03-05 07:57] LABS: HEMOGLOBIN 11.7 GM/dL (10.7-15.3); MCH 31.5 pg (25.7-33.7); MCHC 33.3 g/dl (32.0-36.0); MEAN CELL VOLUME 94.3 fl (80-96); MEAN PLT VOLUME 7.8 fl (7.5-11.1); PLATELET COUNT 299 10^3/uL (134-434); RBC 3.71 M/mm3 (3.60-5.2); RDW 13.6 % (11.6-15.6); WHITE BLOOD COUNT 10.6 K/mm3 (4.0-10.0)
[2022-03-05 08:00] LABS: INR 1.03 (0.83-1.09); PROTHROMBIN TIME (PATIENT) 11.9 SEC (9.7-13.0)
[2022-03-05 08:02] LABS: ACTIVATED PTT 31.6 SECONDS (25.2-36.5)
[2022-03-05 08:06] LABS: CALCIUM 8.7 mg/dL (8.5-10.1)
[2022-03-05 08:07] LABS: ALBUMIN 3.7 g/dl (3.4-5.0); BLOOD UREA NITROGEN 11.7 mg/dL (7-18)
[2022-03-05 08:10] LABS: CREATININE 0.6 mg/dL (0.55-1.3); PHOSPHOROUS 4.2 mg/dL (2.5-4.9)
[2022-03-05 08:11] LABS: BILIRUBIN,TOTAL 0.4 mg/dL (0.2-1); TOT PROT 6.5 g/dl (6.4-8.2)
[2022-03-05] MEDS ORDERED: NICOTINE 7 MG/24 HOURS TOPICAL PATCH TD ONE (09:08)
[2022-03-05] MEDS ORDERED: TAMSULOSIN HCL 0.4 MG CAP ONE (09:08)
[2022-03-05] MEDS: TAMSULOSIN HCL 0.4 MG CAP PO SCH (09:13)
[2022-03-05] MEDS: NICOTINE 7 MG/24 HOURS TOPICAL PATCH TD SCH (09:13)
[2022-03-05] MEDS ORDERED: LISINOPRIL 20 MG TABLET PO SCH (22:00)
[2022-03-05] MEDS ORDERED: CEFTRIAXONE 1 GM in DEXTROSE 5%-WATER - 50 ML IVPB SCH (22:00)
[2022-03-05] MEDS ORDERED: cefTRIAXone SODIUM 1 GM VIAL ONE (22:01)
[2022-03-05] MEDS ORDERED: DEXTROSE 5%-WATER - 50 ML IVPB ONE (22:01)
[2022-03-06] MEDS: SODIUM CHLORIDE 1,000 ML IV SCH (06:04)
[2022-03-06] MEDS: INSULIN SLIDING SCALE (NOVOLOG) 1 VIAL SQ SCH ×3 (06:08→18:26)
[2022-03-06 10:19] VITALS: PULSE 72
[2022-03-06] MEDS: TAMSULOSIN HCL 0.4 MG CAP PO SCH (10:53)
[2022-03-06] MEDS: NICOTINE 7 MG/24 HOURS TOPICAL PATCH TD SCH (10:53)
[2022-03-06 15:11] VITALS: BP 119/67; TEMP 98.4
== END 2022-03-06 18:55 | disposition home or self-care (01) | DRG 465 ==
LOC: JER 22:34 → JERBED 03-05 02:18 → J5S 03-05 21:42
PROVIDERS: ADMIT Internal Medicine; ATTEND Internal Medicine
DX: N20.2 Calculus of kidney with calculus of ureter (principal); E11.65 Type 2 diabetes mellitus with hyperglycemia; E78.5 Hyperlipidemia, unspecified; F17.210 Nicotine dependence, cigarettes, uncomplicated; I10 Essential (primary) hypertension; D72.829 Elevated white blood cell count, unspecified; Z79.84 Long term (current) use of oral hypoglycemic drugs
CPT/HCPCS: 36415; 74176-TC; 80053; 81003; 82962; 83605; 83735; 84100; 85025; 85027; 85610; 85730; 87040; 87086; 93005; 93010; 99285-25; C9803-CS; U0003; U0005

== ENCOUNTER 2023-06-04 08:50 | Emergency (ER) | payer OTHER ==
[2023-06-04 09:09] VITALS: BMI 20.6
[2023-06-04] MEDS ORDERED: ACETAMINOPHEN 1000 MG/100 ML BAG IVPB ONE (09:35)
[2023-06-04] MEDS ORDERED: ACETAMINOPHEN INJECTION 100 ML IVPB ONE (09:56)
[2023-06-04 10:16] LABS: PH,URINE 5.5 (5.0-8.0); URINE APPEARANCE CLEAR; URINE BILIRUBIN NEGATIVE (NEGATIVE); URINE COLOR YELLOW; URINE GLUCOSE (UA) 3+ (NEGATIVE); URINE KETONE NEGATIVE (NEGATIVE); URINE LEUK ESTERASE NEGATIVE (NEGATIVE); URINE NITRITE NEGATIVE (NEGATIVE); URINE PROTEIN NEGATIVE (NEGATIVE); URINE UROBILINOGEN 0.2 mg/dL (0.2-1.0)
[2023-06-04 10:27] LABS: BASO % 0.7 % (0-2.0); EOS % 0.2 % (0-4.5); HEMATOCRIT 39.1 % (32.4-45.2); HEMOGLOBIN 12.7 GM/dL (10.7-15.3); LYMPH % 8.5 % (8-40); MCH 28.6 pg (25.7-33.7); MCHC 32.6 g/dl (32.0-36.0); MEAN CELL VOLUME 87.9 fl (80-96); MEAN PLT VOLUME 7.4 fl (7.5-11.1); MONO % 3.3 % (3.8-10.2); NEUT % 87.3 % (42.8-82.8); PLATELET COUNT 369 10^3/uL (134-434); RBC 4.44 M/mm3 (3.60-5.2); RDW 16.1 % (11.6-15.6); WHITE BLOOD COUNT 17.6 K/mm3 (4.0-10.0)
[2023-06-04 10:36] LABS: CHLORIDE 106 mmol/L (98-107); SODIUM 134 mmol/L (136-145)
[2023-06-04 10:38] LABS: BLOOD UREA NITROGEN 15.6 mg/dL (7-18); CALCIUM 9.1 mg/dL (8.5-10.1); CO2 26 mmol/L (21-32); GLUCOSE,RANDOM 131 mg/dL (74-106); LIPASE 145 U/L (73-393)
[2023-06-04 10:39] LABS: ALBUMIN 3.9 g/dl (3.4-5.0)
[2023-06-04 10:41] LABS: CREATININE 0.7 mg/dL (0.55-1.3); SGOT/AST 68 U/L (15-37); SGPT/ALT 40 U/L (13-61)
[2023-06-04 10:43] LABS: BILIRUBIN,TOTAL 0.3 mg/dL (0.2-1)
[2023-06-04 10:44] LABS: ALK PHOS 116 U/L (45-117)
[2023-06-04 10:45] LABS: ANION GAP 1 MMOL/L (8-16); POTASSIUM 8.7 mmol/L (3.5-5.1)
[2023-06-04 12:14] LABS: POTASSIUM 4.7 mmol/L (3.5-5.1)
[2023-06-04 12:17] LABS: CALCIUM 8.5 mg/dL (8.5-10.1)
[2023-06-04 12:18] LABS: ALBUMIN 3.7 g/dl (3.4-5.0); BLOOD UREA NITROGEN 15.7 mg/dL (7-18)
[2023-06-04 12:21] LABS: CREATININE 0.7 mg/dL (0.55-1.3)
[2023-06-04 12:23] LABS: BILIRUBIN,TOTAL 0.4 mg/dL (0.2-1); TOT PROT 7.3 g/dl (6.4-8.2)
[2023-06-04] MEDS ORDERED: KETOROLAC TROMETHAMINE 15 MG/ML VIAL IVPUSH ONE (12:47)
[2023-06-04] MEDS ORDERED: KETOROLAC TROMETHAMINE 15 MG/ML VIAL ONE (12:55)
[2023-06-04] MEDS ORDERED: FAMOTIDINE 20 MG/50 ML IVPB 20 MG/50 ML MG IVPB ONE ×2 (13:21→13:50)
[2023-06-04] MEDS ORDERED: MAG HYDROX/AL HYDROX/SIMETH 30 ML UNIT-DOSE CUP PO ONE (13:21)
[2023-06-04] MEDS ORDERED: SODIUM CHLORIDE 0.9% 500 ML INFUS.BAG IV ONE ×2 (13:27→14:42)
[2023-06-04] MEDS ORDERED: MAG HYDROX/AL HYDROX/SIMETH 30 ML UNIT-DOSE CUP ONE (13:50)
[2023-06-04 14:24] VITALS: BP 109/63; PULSE 77; RESP 18; TEMP 98.3
== END 2023-06-04 15:41 | disposition left against medical advice (07) ==
LOC: JER 08:50
PROC: 3E033GC Introduction of Other Therapeutic Substance into Peripheral Vein, Percutaneous Approach (ICD-10-PCS; principal; 2023-06-04)
PROC: 3E033NZ Introduction of Analgesics, Hypnotics, Sedatives into Peripheral Vein, Percutaneous Approach (ICD-10-PCS; 2023-06-04)
PROC: 3E0333Z Introduction of Anti-inflammatory into Peripheral Vein, Percutaneous Approach (ICD-10-PCS; 2023-06-04)
DX: R10.9 Unspecified abdominal pain (principal); R68.83 Chills (without fever); R30.0 Dysuria
CPT/HCPCS: 36415; 71046-TC-FY; 74176-TC; 80053; 81003; 83690; 84484; 85025; 87086; 93005; 93010; 99285-25

== ENCOUNTER 2024-06-28 16:44 | Emergency (ER) | payer OTHER ==
[2024-06-28 17:12] VITALS: BP 171/80; PULSE 94; RESP 18; TEMP 98; BMI 19.4
[2024-06-28] MEDS ORDERED: ACETAMINOPHEN 325 MG TABLET (FP) ONE (18:03)
[2024-06-28] MEDS: ACETAMINOPHEN 325 MG TABLET (FP) PO ONE (18:10)
[2024-06-28 18:28] LABS: HEMATOCRIT 26.1 % (32.4-45.2); HEMOGLOBIN 7.9 GM/dL (10.7-15.3); MCH 21.6 pg (25.7-33.7); MCHC 30.1 g/dl (32.0-36.0); MEAN CELL VOLUME 71.5 fl (80-96); MEAN PLT VOLUME 6.9 fl (7.5-11.1); PLATELET COUNT 340 10^3/uL (134-434); RBC 3.65 M/mm3 (3.60-5.2); RDW 20.8 % (11.6-15.6); WHITE BLOOD COUNT 8.2 K/mm3 (4.0-10.0)
[2024-06-28 19:12] LABS: ANISOCYTOSIS 2+; HELMET CELLS 1+; MACROCYTOSIS 0; TARGET CELLS 1+
[2024-06-28 19:57] LABS: ERYTHROCYTE SEDIMENTATION RATE 16 mm/hr (0-30)
[2024-06-28 20:18] LABS: HEMATOCRIT 26.4 % (32.4-45.2); HEMOGLOBIN 7.8 GM/dL (10.7-15.3); MCH 20.7 pg (25.7-33.7); MCHC 29.5 g/dl (32.0-36.0); MEAN CELL VOLUME 70.1 fl (80-96); MEAN PLT VOLUME 6.8 fl (7.5-11.1); PLATELET COUNT 347 10^3/uL (134-434); RBC 3.76 M/mm3 (3.60-5.2); RDW 20.9 % (11.6-15.6); WHITE BLOOD COUNT 8.1 K/mm3 (4.0-10.0)
[2024-06-28 20:30] LABS: CHLORIDE 110 mmol/L (98-107); POTASSIUM 4.9 mmol/L (3.5-5.1); SODIUM 140 mmol/L (136-145)
[2024-06-28 20:33] LABS: ALBUMIN 3.5 g/dl (3.4-5.0); ANION GAP 3 mmol/L (4-13); BLOOD UREA NITROGEN 14.8 mg/dL (7-18); CO2 28 mmol/L (21-32); GLUCOSE,RANDOM 121 mg/dL (74-106)
[2024-06-28 20:36] LABS: CREATININE 0.7 mg/dL (0.55-1.3); SGOT/AST 22 U/L (15-37); SGPT/ALT 29 U/L (13-61)
[2024-06-28 20:37] LABS: BILIRUBIN,TOTAL 0.2 mg/dL (0.2-1)
[2024-06-28 20:38] LABS: ALK PHOS 89 U/L (45-117)
[2024-06-28] MEDS ORDERED: DALBAVANCIN HCL 500 MG VIAL (RESTRICTED TO ID ONLY) IVPB ONE (20:48)
[2024-06-28] MEDS: DALBAVANCIN HCL 1,500 MG in DEXTROSE 5%-WATER - 500 ML IVPB ONE (21:02)
[2024-06-28] MEDS: oxyCODONE HCL 5 MG TABLET PO ONE (21:02)
[2024-06-28] MEDS ORDERED: oxyCODONE HCL 5 MG TABLET ONE (21:03)
== END 2024-06-28 21:56 | disposition home or self-care (01) ==
LOC: JER 16:44
DX: L03.116 Cellulitis of left lower limb (principal); E11.9 Type 2 diabetes mellitus without complications
CPT/HCPCS: 36415; 73590-TC-LT-FY; 80053; 85025; 85027; 85651; 86140; 99284-25; J0875

== ENCOUNTER 2024-10-31 06:36 | Day surgery (SDC) | payer OTHER ==
[2024-10-29 15:11] VITALS: BMI 20.7
[2024-10-31] MEDS ORDERED: TRIAMCINOLONE ACET 40MG/1ML VIAL ONE (07:44)
[2024-10-31] MEDS ORDERED: BUPIVACAINE HCL/PF 0.5% (5MG/ML) 10 ML VIAL ONE (07:44)
[2024-10-31] MEDS ORDERED: DEXMEDETOMIDINE HCL 200 MCG/2 ML IVPB ONE (09:48)
[2024-10-31] MEDS ORDERED: MIDAZOLAM HCL 2 MG/2 ML SINGLE DOSE VIAL ONE (09:49)
[2024-10-31] MEDS ORDERED: PROPOFOL 20 ML ONE ×2 (09:49→11:43)
[2024-10-31] MEDS ORDERED: LIDOCAINE HCL/PF 2% SDV 5ML VIAL ONE (09:49)
[2024-10-31] MEDS ORDERED: ceFAZolin SODIUM 1 GM VIAL ONE (10:24)
[2024-10-31] MEDS: ceFAZolin SODIUM 1 GM VIAL IVPB ONE (10:30)
[2024-10-31] MEDS: LIDOCAINE HCL 1%, 10 MG/ML (20ML VIAL) NR ONE (10:42)
[2024-10-31] MEDS ORDERED: oxyCODONE HCL 5 MG TABLET PO PRN ×2 (10:55→12:05)
[2024-10-31] MEDS ORDERED: ONDANSETRON 4 MG/2 ML VIAL IVPUSH PRN (10:55)
[2024-10-31] MEDS ORDERED: PROMETHAZINE HCL 25 MG/1 ML VIAL IVPB PRN (10:55)
[2024-10-31] MEDS: LACTATED RINGERS SOLUTION 1,000 ML IV SCH (12:20)
[2024-10-31] MEDS: ACETAMINOPHEN 1000 MG/100 ML BAG IVPB ONE (12:21)
[2024-10-31] MEDS ORDERED: ACETAMINOPHEN INJECTION 100 ML ONE (12:21)
[2024-10-31] MEDS ORDERED: oxyCODONE HCL 5 MG TABLET ONE (14:40)
[2024-10-31] MEDS: oxyCODONE HCL 5 MG TABLET PO PRN ×2 (14:41→20:49)
[2024-10-31] MEDS ORDERED: ONDANSETRON 4 MG/2 ML VIAL ONE (17:13)
[2024-10-31] MEDS: ONDANSETRON 4 MG/2 ML VIAL IVPUSH PRN (17:38)
[2024-10-31 18:53] LABS: BASO % 0.4 % (0-2.0); EOS % 0.9 % (0-4.5); HEMATOCRIT 31.5 % (32.4-45.2); HEMOGLOBIN 10.1 GM/dL (10.7-15.3); LYMPH % 15.2 % (8-40); MCH 30.6 pg (25.7-33.7); MCHC 32.2 g/dl (32.0-36.0); MEAN PLT VOLUME 6.5 fl (7.5-11.1); NEUT % 78.5 % (42.8-82.8); PLATELET COUNT 330 10^3/uL (134-434); RBC 3.32 M/mm3 (3.60-5.2); RDW 15.3 % (11.6-15.6); WHITE BLOOD COUNT 10.5 K/mm3 (4.0-10.0)
[2024-10-31 19:14] LABS: POTASSIUM 5.9 mmol/L (3.5-5.1)
[2024-10-31 19:15] LABS: CALCIUM 9.3 mg/dL (8.5-10.1)
[2024-10-31 19:16] LABS: ALBUMIN 3.3 g/dl (3.4-5.0); BLOOD UREA NITROGEN 8.9 mg/dL (7-18)
[2024-10-31 19:19] LABS: CREATININE 0.5 mg/dL (0.55-1.3)
[2024-10-31 19:21] LABS: BILIRUBIN,TOTAL 0.4 mg/dL (0.2-1)
[2024-10-31] MEDS: SODIUM ZIRCONIUM CYCLOSILICATE (LOKELMA) 5 GM PACKET PO SCH (20:39)
[2024-10-31] MEDS: CALCIUM GLUCONATE IN NACL 1 GM/50 ML BAG IVPB ONE (20:39)
[2024-10-31] MEDS: INSULIN ASPART SLIDING SCALE (NOVOLOG) 1 VIAL SQ SCH (20:46)
[2024-10-31] MEDS: ALBUTEROL SO4 0.083% IH SOL 2.5 MG/3 ML VIAL.NEB. NEB ONE (21:08)
[2024-10-31] MEDS: FAMOTIDINE 20 MG/50 ML IVPB 20 MG/50 ML MG IVPB SCH (21:55)
[2024-10-31] MEDS: ATORVASTATIN CA 20 MG TABLET (FP) PO SCH (21:57)
[2024-10-31 23:03] LABS: POTASSIUM 4.8 mmol/L (3.5-5.1)
[2024-10-31 23:04] LABS: BLOOD UREA NITROGEN 8.7 mg/dL (7-18); CALCIUM 9.3 mg/dL (8.5-10.1)
[2024-10-31 23:08] LABS: CREATININE 0.6 mg/dL (0.55-1.3)
[2024-10-31] MEDS: DEXTROSE 50%-WATER 25 GM/50 ML DISP.SYRIN IVPUSH ONE (23:41)
[2024-10-31] MEDS: INSULIN REGULAR HUMAN 100 UNITS/ML *VIAL IVPUSH ONE (23:41)
[2024-11-01] MEDS ORDERED: metFORMIN HCL 500 MG TABLET (FP) PO SCH (07:00)
[2024-11-01 08:42] LABS: BASO % 0.5 % (0-2.0); EOS % 1.2 % (0-4.5); HEMOGLOBIN 10.2 GM/dL (10.7-15.3); LYMPH % 15.7 % (8-40); MCH 30.4 pg (25.7-33.7); MCHC 31.8 g/dl (32.0-36.0); MEAN CELL VOLUME 95.6 fl (80-96); MEAN PLT VOLUME 7.2 fl (7.5-11.1); MONO % 7.6 % (3.8-10.2); PLATELET COUNT 353 10^3/uL (134-434); RBC 3.35 M/mm3 (3.60-5.2); RDW 15.1 % (11.6-15.6); WHITE BLOOD COUNT 9.2 K/mm3 (4.0-10.0)
[2024-11-01 08:49] LABS: POTASSIUM 5.3 mmol/L (3.5-5.1)
[2024-11-01 08:57] LABS: BLOOD UREA NITROGEN 7.6 mg/dL (7-18); CALCIUM 9.2 mg/dL (8.5-10.1)
[2024-11-01 08:58] LABS: MAGNESIUM 1.9 mg/dL (1.8-2.4)
[2024-11-01 09:02] LABS: CREATININE 0.6 mg/dL (0.55-1.3)
[2024-11-01 09:15] VITALS: RESP 20
[2024-11-01] MEDS: ACETAMINOPHEN 325 MG TABLET (FP) PO PRN (09:15)
[2024-11-01] MEDS: ASPIRIN 81 MG CHEWABLE TABLETS PO SCH (09:15)
[2024-11-01] MEDS: LOSARTAN POTASSIUM 25 MG TABLET PO SCH (09:16)
[2024-11-01] MEDS: CLOPIDOGREL BISULFATE 75 MG TABLET (FP) PO SCH (09:16)
[2024-11-01] MEDS: oxyCODONE HCL 5 MG TABLET PO PRN (11:30)
[2024-11-01] MEDS: SODIUM CHLORIDE 500 ML IV STA (13:32)
[2024-11-01] MEDS: MUPIROCIN 2% TOPICAL OINTMENT 22 GM TUBE TP SCH (13:46)
[2024-11-01 15:07] VITALS: BP 133/67; PULSE 73; TEMP 98.4
[2024-11-01] MEDS: ONDANSETRON *ODT* 4 MG TABLET SL ONE (15:24)
== END 2024-11-01 16:28 | disposition home or self-care (01) ==
LOC: JASU-SURG 06:36 → JASUSAT 06:36 → SUATTDRO 06:36 → J8W 19:37 → JASUSAT 11-01 16:28
PROVIDERS: ATTEND Nurse Practitioner Family
PROC: X2K New Technology, Cardiovascular System, Bypass (ICD-10-PCS; principal; 2024-10-31 10:00)
DX: I70.222 Atherosclerosis of native arteries of extremities with rest pain, left leg (principal); I74.3 Embolism and thrombosis of arteries of the lower extremities; I77.1 Stricture of artery; I10 Essential (primary) hypertension; E11.9 Type 2 diabetes mellitus without complications; Z79.84 Long term (current) use of oral hypoglycemic drugs
CPT/HCPCS: 37227; C1877; 36415; 76000-TC-FY; 80048; 80053; 82962; 83735; 85025; 93005; 93010; 94640; 94760; C1760; C1769; C1876; C1894; J0131; Q0162

== ENCOUNTER 2025-03-04 16:05 | Inpatient (IN) | payer OTHER ==
[2025-03-04 16:19] VITALS: BMI 20.7
[2025-03-04 19:12] LABS: ABSOLUTE IMMATURE GRANULOCYTES 0.05 x10^3/uL (0.0-0.031); BASOPHILS # 0.08 x10^3/uL (0.01-0.08); EOSINOPHIL % 1.5 % (0.7-5.8); EOSINOPHILS # 0.16 x10^3/uL (0.04-0.36); MCHC 28.2 g/dl (32.2-35.5); MEAN CELL VOLUME 82.1 fl (79.4-94.8); MEAN PLT VOLUME 8.7 fl (9.4-12.3); MONOCYTE # 0.74 x10^3/uL (0.24-0.86); MONOCYTE % 7.2 % (4.7-12.5); RDW 25.3 % (12.4-16.4)
[2025-03-04 19:28] LABS: INR 1.0 (0.83-1.09); PROTHROMBIN TIME (PATIENT) 11.0 SEC (9.7-13.0)
[2025-03-04 19:31] LABS: ACTIVATED PTT 29.2 SECONDS (25.2-36.5)
[2025-03-04 20:01] LABS: CO2 24.0 mmol/L (21-32); GLUCOSE,RANDOM 84.0 mg/dL (74-106)
[2025-03-04 20:04] LABS: CREATININE 0.6 mg/dL (0.55-1.3); SGOT/AST 30.0 U/L (15-37); SGPT/ALT 22.0 U/L (13-61)
[2025-03-04 20:06] LABS: TOT PROT 6.8 g/dl (6.4-8.2)
[2025-03-04 20:07] LABS: ALK PHOS 72.0 U/L (45-117)
[2025-03-04 20:52] LABS: HIV INTERPRETATION NEGATIVE (NEGATIVE)
[2025-03-04 20:53] LABS: HCV DIAGNOSTIC IN-HOUSE W/RFLX NON-REACTIVE (NONREACTIVE)
[2025-03-04] MEDS ORDERED: HEPARIN NA (PORCINE) 5,000 UNITS/ML 1ML VIAL IVPUSH PRN ×2 (22:05)
[2025-03-04] MEDS ORDERED: ACETAMINOPHEN INJECTION 100 ML ONE (22:54)
[2025-03-04] MEDS: HYDROCORTISONE 1% TOPICAL OINT 30 GM TUBE TP ONE (23:07)
[2025-03-04] MEDS: ACETAMINOPHEN 1000 MG/100 ML BAG IVPB PRN (23:30)
[2025-03-04] MEDS ORDERED: HEPARIN NA (PORCINE) 5,000 UNITS/ML 1ML VIAL ONE (23:52)
[2025-03-04] MEDS ORDERED: HEPARIN INFUSION - 25,000 UNITS/500 ML INFUS.BAG ONE (23:52)
[2025-03-05] MEDS: HEPARIN NA (PORCINE) 5,000 UNITS/ML 1ML VIAL IVPUSH ONE (00:03)
[2025-03-05] MEDS: HEPARIN INFUSION - 25,000 UNITS/500 ML INFUS.BAG IVPB SCH (00:03)
[2025-03-05] MEDS: SODIUM CHLORIDE 1,000 ML IV SCH (00:15)
[2025-03-05 06:53] LABS: ABSOLUTE IMMATURE GRANULOCYTES 0.04 x10^3/uL (0.0-0.031); BASOPHILS # 0.06 x10^3/uL (0.01-0.08); EOSINOPHIL % 1.8 % (0.7-5.8); EOSINOPHILS # 0.15 x10^3/uL (0.04-0.36); MCHC 28.4 g/dl (32.2-35.5); MEAN CELL VOLUME 82.6 fl (79.4-94.8); MEAN PLT VOLUME 9.0 fl (9.4-12.3); MONOCYTE # 0.71 x10^3/uL (0.24-0.86); MONOCYTE % 8.3 % (4.7-12.5); RDW 25.2 % (12.4-16.4)
[2025-03-05 07:27] LABS: CO2 26.0 mmol/L (21-32); GLUCOSE,RANDOM 126.0 mg/dL (74-106)
[2025-03-05 07:30] LABS: CREATININE 0.7 mg/dL (0.55-1.3); SGOT/AST 22.0 U/L (15-37); SGPT/ALT 21.0 U/L (13-61)
[2025-03-05 07:31] LABS: TOT PROT 5.9 g/dl (6.4-8.2)
[2025-03-05 07:32] LABS: ALK PHOS 63.0 U/L (45-117)
[2025-03-05] MEDS: INSULIN ASPART SLIDING SCALE (NOVOLOG) 1 VIAL SQ SCH (07:36)
[2025-03-05] MEDS ORDERED: ASPIRIN 81 MG CHEWABLE TABLETS ONE (09:08)
[2025-03-05] MEDS: ASPIRIN 81 MG CHEWABLE TABLETS PO SCH (09:11)
[2025-03-05] MEDS ORDERED: MORPHINE SULFATE 2 MG/ML SYRINGE ONE (10:15)
[2025-03-05] MEDS: ATORVASTATIN CA 40 MG TABLET (FP) PO SCH (21:00)
[2025-03-05] MEDS: morphine CARPU-JECT 2 MG/1 ML DISP.SYRIN IVPUSH PRN (21:00)
[2025-03-06 10:26] LABS: MCHC 27.7 g/dl (32.2-35.5); MEAN CELL VOLUME 83.0 fl (79.4-94.8); MEAN PLT VOLUME 9.2 fl (9.4-12.3); RDW 24.9 % (12.4-16.4)
[2025-03-06 10:33] LABS: INR 1.04 (0.83-1.09); PROTHROMBIN TIME (PATIENT) 11.4 SEC (9.7-13.0)
[2025-03-06 11:21] LABS: GLUCOSE,RANDOM 108.0 mg/dL (74-106)
[2025-03-06 11:23] LABS: CO2 28.0 mmol/L (21-32)
[2025-03-06 11:24] LABS: CREATININE 0.5 mg/dL (0.55-1.3)
[2025-03-06] MEDS ORDERED: LIDOCAINE HCL 1%, 10 MG/ML (20ML VIAL) ONE (15:04)
[2025-03-06] MEDS ORDERED: PAPAVERINE HCL 30 MG/1 ML 10 ML VIAL NR ONE ×2 (15:04→15:26)
[2025-03-06] MEDS ORDERED: POVIDONE-IODINE OINTMENT 10% - 28.4 GM TUBE ONE (15:05)
[2025-03-06] MEDS ORDERED: HEPARIN NA (PORCINE) 5,000 UNITS/ML 1ML VIAL ONE (15:05)
[2025-03-06] MEDS ORDERED: PROPOFOL 20 ML ONE ×2 (17:34→20:01)
[2025-03-06] MEDS ORDERED: SUCCINYLCHOLINE CHLORIDE 200 MG/10 ML SYRINGE ONE (17:35)
[2025-03-06] MEDS ORDERED: MIDAZOLAM HCL 2 MG/2 ML SINGLE DOSE VIAL ONE (17:37)
[2025-03-06] MEDS ORDERED: PHENYLEPHRINE HCL 10 MG/1 ML SINGLE DOSE VIAL ONE (17:45)
[2025-03-06] MEDS: POVIDONE-IODINE OINTMENT 10% - 28.4 GM TUBE TP ONE (18:43)
[2025-03-06] MEDS: LACTATED RINGERS SOLUTION 1,000 ML IV STA (20:30)
[2025-03-06] MEDS: HYDROmorphone *PCA* 10MG/50ML DISP.SYRIN PCA SCH (21:48)
[2025-03-06] MEDS ORDERED: MUPIROCIN 2% TOPICAL OINTMENT FOR DECOLONIZATION NS SCH (22:00)
[2025-03-06] MEDS ORDERED: CHLORHEXIDINE GLUCONATE 4% CLEANSER FOR DECOLONIZATION TP SCH (22:00)
[2025-03-06 22:47] LABS: ABSOLUTE IMMATURE GRANULOCYTES 0.10 x10^3/uL (0.0-0.031); BASOPHILS # 0.06 x10^3/uL (0.01-0.08); EOSINOPHIL % 0.5 % (0.7-5.8); EOSINOPHILS # 0.08 x10^3/uL (0.04-0.36); MCHC 28.1 g/dl (32.2-35.5); MEAN CELL VOLUME 82.5 fl (79.4-94.8); MEAN PLT VOLUME 8.7 fl (9.4-12.3); MONOCYTE # 0.74 x10^3/uL (0.24-0.86); MONOCYTE % 4.9 % (4.7-12.5); RDW 24.8 % (12.4-16.4)
[2025-03-06 22:56] LABS: INR 1.07 (0.83-1.09); PROTHROMBIN TIME (PATIENT) 11.8 SEC (9.7-13.0)
[2025-03-06 22:58] LABS: ACTIVATED PTT 49.7 SECONDS (25.2-36.5)
[2025-03-06] MEDS: LACTATED RINGERS SOLUTION 1,000 ML/1,000 ML INFUS.BAG IV SCH (23:44)
[2025-03-06] MEDS: ONDANSETRON 4 MG/2 ML VIAL IVPUSH PRN (23:54)
[2025-03-07] MEDS: ATORVASTATIN CA 40 MG TABLET (FP) PO SCH ×2 (00:29→22:37)
[2025-03-07] MEDS ORDERED: PROTAMINE SULFATE 50 MG/5 ML VIAL ONE (00:34)
[2025-03-07] MEDS: PROTAMINE SULFATE 10 MG/ML IVPB STA (00:38)
[2025-03-07] MEDS: PROTAMINE SULFATE 50 MG/5 ML VIAL IVPB STA (00:49)
[2025-03-07] MEDS: CEFAZOLIN 1 GM in DEXTROSE 5%-WATER - 50 ML IVPB SCH (01:19)
[2025-03-07] MEDS: ACETAMINOPHEN 1000 MG/100 ML BAG IVPB SCH ×2 (01:36→20:29)
[2025-03-07] MEDS: HEPARIN NA (PORCINE) 5,000 UNITS/ML 1ML VIAL SQ SCH (02:18)
[2025-03-07] MEDS: INSULIN ASPART SLIDING SCALE (NOVOLOG) 1 VIAL SQ SCH (06:30)
[2025-03-07 07:26] LABS: CO2 29.0 mmol/L (21-32); GLUCOSE,RANDOM 145.0 mg/dL (74-106)
[2025-03-07 07:29] LABS: CREATININE 0.5 mg/dL (0.55-1.3)
[2025-03-07 07:38] LABS: MCHC 28.6 g/dl (32.2-35.5); MEAN CELL VOLUME 83.9 fl (79.4-94.8); MEAN PLT VOLUME 9.5 fl (9.4-12.3); RDW 22.5 % (12.4-16.4)
[2025-03-07] MEDS: MAGNESIUM SULFATE IN WATER 2 GM/50 ML IVPB IVPB ONE (09:22)
[2025-03-07] MEDS: ASPIRIN 81 MG CHEWABLE TABLETS PO SCH (09:24)
[2025-03-07] MEDS: CLOPIDOGREL BISULFATE 75 MG TABLET (FP) PO SCH (09:24)
[2025-03-07] MEDS: ONDANSETRON 4 MG/2 ML VIAL IVPUSH ONE (09:51)
[2025-03-07] MEDS: MUPIROCIN 2% TOPICAL OINTMENT FOR DECOLONIZATION NS SCH (15:43)
[2025-03-07] MEDS: LACTATED RINGERS SOLUTION 1,000 ML/1,000 ML INFUS.BAG IV SCH (20:30)
[2025-03-07] MEDS: HYDROmorphone *PCA* 10MG/50ML DISP.SYRIN PCA SCH (20:30)
[2025-03-07] MEDS ORDERED: CHLORHEXIDINE GLUCONATE 4% CLEANSER FOR DECOLONIZATION TP SCH (22:00)
[2025-03-07] MEDS: SENNOSIDES/DOCUSATE COMBO (SENNA PLUS) TABLET (UD) PO SCH (22:37)
[2025-03-08] MEDS: CEFAZOLIN 1 GM in DEXTROSE 5%-WATER - 50 ML IVPB SCH (03:00)
[2025-03-08] MEDS: INSULIN ASPART SLIDING SCALE (NOVOLOG) 1 VIAL SQ SCH (06:05)
[2025-03-08 08:40] LABS: ABSOLUTE IMMATURE GRANULOCYTES 0.04 x10^3/uL (0.0-0.031); BASOPHILS # 0.07 x10^3/uL (0.01-0.08); EOSINOPHIL % 2.5 % (0.7-5.8); EOSINOPHILS # 0.24 x10^3/uL (0.04-0.36); MCHC 28.4 g/dl (32.2-35.5); MEAN CELL VOLUME 84.3 fl (79.4-94.8); MEAN PLT VOLUME 9.5 fl (9.4-12.3); MONOCYTE # 1.00 x10^3/uL (0.24-0.86); MONOCYTE % 10.5 % (4.7-12.5); RDW 22.8 % (12.4-16.4)
[2025-03-08 09:03] LABS: CO2 30.0 mmol/L (21-32); GLUCOSE,RANDOM 99.0 mg/dL (74-106)
[2025-03-08 09:07] LABS: CREATININE 0.5 mg/dL (0.55-1.3); SGOT/AST 23.0 U/L (15-37); SGPT/ALT 19.0 U/L (13-61)
[2025-03-08 09:09] LABS: ALK PHOS 52.0 U/L (45-117); TOT PROT 5.3 g/dl (6.4-8.2)
[2025-03-08] MEDS: ASPIRIN COATED 81 MG TABLET.EC PO SCH (09:21)
[2025-03-08] MEDS: CLOPIDOGREL BISULFATE 75 MG TABLET (FP) PO SCH (09:21)
[2025-03-08] MEDS: MULTIVITAMINS (DAILY MVI) TABLET (FP) PO SCH (17:31)
[2025-03-08] MEDS: HEPARIN NA (PORCINE) 5,000 UNITS/ML 1ML VIAL SQ SCH (21:02)
[2025-03-09 08:50] LABS: ABSOLUTE IMMATURE GRANULOCYTES 0.07 x10^3/uL (0.0-0.031); BASOPHILS # 0.07 x10^3/uL (0.01-0.08); EOSINOPHIL % 1.9 % (0.7-5.8); EOSINOPHILS # 0.23 x10^3/uL (0.04-0.36); MCHC 28.7 g/dl (32.2-35.5); MEAN CELL VOLUME 83.6 fl (79.4-94.8); MEAN PLT VOLUME 9.7 fl (9.4-12.3); MONOCYTE # 1.08 x10^3/uL (0.24-0.86); MONOCYTE % 9.0 % (4.7-12.5); RDW 22.8 % (12.4-16.4)
[2025-03-09 09:59] LABS: IRON SERUM 27.0 ug/dL (50-175)
[2025-03-09 10:08] LABS: ALK PHOS 52.0 U/L (45-117); CO2 27.0 mmol/L (21-32); CREATININE 0.5 mg/dL (0.55-1.3); GLUCOSE,RANDOM 87.0 mg/dL (74-106); SGOT/AST 76.0 U/L (15-37); SGPT/ALT 24.0 U/L (13-61); TOT PROT 5.6 g/dl (6.4-8.2)
[2025-03-09] MEDS: IRON SUCROSE INJECTION 100 MG in SODIUM CHLORIDE 95 ML IVPB ONE (21:50)
[2025-03-09] MEDS: ACETAMINOPHEN 500 MG TABLET (FP) PO SCH (22:05)
[2025-03-10 08:03] LABS: ABSOLUTE IMMATURE GRANULOCYTES 0.08 x10^3/uL (0.0-0.031); BASOPHILS # 0.08 x10^3/uL (0.01-0.08); EOSINOPHIL % 2.5 % (0.7-5.8); EOSINOPHILS # 0.30 x10^3/uL (0.04-0.36); MCHC 28.7 g/dl (32.2-35.5); MEAN CELL VOLUME 84.2 fl (79.4-94.8); MEAN PLT VOLUME 9.4 fl (9.4-12.3); MONOCYTE # 0.89 x10^3/uL (0.24-0.86); MONOCYTE % 7.5 % (4.7-12.5); RDW 22.7 % (12.4-16.4)
[2025-03-10 08:37] LABS: CO2 28.0 mmol/L (21-32)
[2025-03-10 08:38] LABS: GLUCOSE,RANDOM 151.0 mg/dL (74-106)
[2025-03-10 08:40] LABS: SGOT/AST 23.0 U/L (15-37); SGPT/ALT 20.0 U/L (13-61)
[2025-03-10 08:41] LABS: CREATININE 0.6 mg/dL (0.55-1.3); TOT PROT 5.2 g/dl (6.4-8.2)
[2025-03-10 08:42] LABS: ALK PHOS 58.0 U/L (45-117)
[2025-03-10] MEDS ORDERED: INSULIN ASPART SLIDING SCALE (NOVOLOG) 1 VIAL SQ ONE (11:12)
[2025-03-10] MEDS: IRON SUCROSE INJECTION 200 MG in SODIUM CHLORIDE 100 ML IVPB ONE (22:14)
[2025-03-11 09:02] LABS: ABSOLUTE IMMATURE GRANULOCYTES 0.07 x10^3/uL (0.0-0.031); BASOPHILS # 0.08 x10^3/uL (0.01-0.08); EOSINOPHIL % 2.8 % (0.7-5.8); EOSINOPHILS # 0.25 x10^3/uL (0.04-0.36); MCHC 28.8 g/dl (32.2-35.5); MEAN CELL VOLUME 85.1 fl (79.4-94.8); MEAN PLT VOLUME 9.2 fl (9.4-12.3); MONOCYTE # 0.92 x10^3/uL (0.24-0.86); MONOCYTE % 10.1 % (4.7-12.5); RDW 23.1 % (12.4-16.4)
[2025-03-11 10:46] LABS: CO2 30.0 mmol/L (21-32); GLUCOSE,RANDOM 126.0 mg/dL (74-106)
[2025-03-11 10:49] LABS: CREATININE 0.6 mg/dL (0.55-1.3); SGOT/AST 23.0 U/L (15-37); SGPT/ALT 25.0 U/L (13-61)
[2025-03-11 10:50] LABS: TOT PROT 5.3 g/dl (6.4-8.2)
[2025-03-11 10:53] LABS: ALK PHOS 58.0 U/L (45-117)
[2025-03-11 12:29] VITALS: TEMP 98.2
[2025-03-11 15:29] VITALS: BP 129/62; PULSE 86; RESP 18
== END 2025-03-11 20:05 | DRG 181 ==
LOC: JER 16:05 → JERBED 17:24 → J5S 03-05 14:47 → JICU 03-06 23:28 → J8W 03-07 16:43
PROVIDERS: ADMIT Hospitalist; ATTEND Nurse Practitioner Acute Care
PROC: 041L0JL Bypass Left Femoral Artery to Popliteal Artery with Synthetic Substitute, Open Approach (ICD-10-PCS; principal; 2025-03-06 15:00)
DX: I70.298 Other atherosclerosis of native arteries of extremities, other extremity (principal); T82.868A Thrombosis due to vascular prosthetic devices, implants and grafts, initial encounter; E11.52 Type 2 diabetes mellitus with diabetic peripheral angiopathy with gangrene; I10 Essential (primary) hypertension; E78.5 Hyperlipidemia, unspecified; E11.622 Type 2 diabetes mellitus with other skin ulcer; L97.828 Non-pressure chronic ulcer of other part of left lower leg with other specified severity; Y83.8 Other surgical procedures as the cause of abnormal reaction of the patient, or of later complication, without mention of misadventure at the time of the procedure; D64.9 Anemia, unspecified
CPT/HCPCS: 36415; 36430; 71046-TC-FY; 80048; 80053; 82550; 82962; 83036; 83540; 83550; 83605; 83735; 84100; 84132; 85025; 85027; 85610; 85730; 86803; 86850; 86900; 86901; 86922; 87389; 87635; 93005; 93010; 94010; 94760; 97116-GP; 97161-GP; 99285-25; J1644; J1756; P9058

== ENCOUNTER 2025-03-16 16:19 | Inpatient (IN) | payer OTHER ==
[2025-03-16 17:59] LABS: ABSOLUTE IMMATURE GRANULOCYTES 0.17 x10^3/uL (0.0-0.031); BASOPHILS # 0.09 x10^3/uL (0.01-0.08); EOSINOPHIL % 0.9 % (0.7-5.8); EOSINOPHILS # 0.10 x10^3/uL (0.04-0.36); MCHC 28.6 g/dl (32.2-35.5); MEAN CELL VOLUME 93.0 fl (79.4-94.8); MEAN PLT VOLUME 8.7 fl (9.4-12.3); MONOCYTE # 0.82 x10^3/uL (0.24-0.86); MONOCYTE % 7.6 % (4.7-12.5); RDW 27.5 % (12.4-16.4)
[2025-03-16 18:10] LABS: INR 1.15 (0.83-1.09); PROTHROMBIN TIME (PATIENT) 12.7 SEC (9.7-13.0)
[2025-03-16 18:13] LABS: ACTIVATED PTT 28.3 SECONDS (25.2-36.5)
[2025-03-16 18:14] LABS: CO2 29.0 mmol/L (21-32); GLUCOSE,RANDOM 186.0 mg/dL (74-106)
[2025-03-16 18:17] LABS: CREATININE 0.6 mg/dL (0.55-1.3); SGOT/AST 28.0 U/L (15-37); SGPT/ALT 25.0 U/L (13-61)
[2025-03-16 18:19] LABS: TOT PROT 5.9 g/dl (6.4-8.2)
[2025-03-16 18:20] LABS: ALK PHOS 52.0 U/L (45-117)
[2025-03-16] MEDS ORDERED: PANTOPRAZOLE SODIUM 40 MG VIAL ONE (20:20)
[2025-03-16] MEDS: PANTOPRAZOLE SODIUM 40 MG VIAL IVPUSH ONE (20:32)
[2025-03-16] MEDS ORDERED: ATORVASTATIN CA 40 MG TABLET (FP) ONE (22:30)
[2025-03-16] MEDS: ATORVASTATIN CA 40 MG TABLET (FP) PO SCH (22:36)
[2025-03-16] MEDS ORDERED: morphine CARPU-JECT 2 MG/1 ML DISP.SYRIN IM PRN (23:26)
[2025-03-16] MEDS ORDERED: diphenhydrAMINE HCL 25 MG CAPSULE (FP) PO ONE (23:49)
[2025-03-16] MEDS: diphenhydrAMINE HCL 25 MG CAPSULE (FP) PO ONE (23:52)
[2025-03-17 00:15] LABS: MCHC 29.3 g/dl (32.2-35.5); MEAN CELL VOLUME 93.0 fl (79.4-94.8); MEAN PLT VOLUME 8.8 fl (9.4-12.3); RDW 24.3 % (12.4-16.4)
[2025-03-17 00:16] LABS: HCV DIAGNOSTIC IN-HOUSE W/RFLX NON-REACTIVE (NONREACTIVE)
[2025-03-17 00:18] LABS: HIV INTERPRETATION NEGATIVE (NEGATIVE)
[2025-03-17 07:58] LABS: ABSOLUTE IMMATURE GRANULOCYTES 0.15 x10^3/uL (0.0-0.031); BASOPHILS # 0.09 x10^3/uL (0.01-0.08); EOSINOPHIL % 1.2 % (0.7-5.8); EOSINOPHILS # 0.12 x10^3/uL (0.04-0.36); MCHC 30.3 g/dl (32.2-35.5); MEAN CELL VOLUME 90.2 fl (79.4-94.8); MEAN PLT VOLUME 9.0 fl (9.4-12.3); MONOCYTE # 0.93 x10^3/uL (0.24-0.86); MONOCYTE % 9.1 % (4.7-12.5); RDW 24.0 % (12.4-16.4)
[2025-03-17] MEDS: PANTOPRAZOLE SODIUM 40 MG VIAL IVPUSH SCH (09:57)
[2025-03-17] MEDS: ASPIRIN COATED 81 MG TABLET.EC PO SCH (09:58)
[2025-03-17] MEDS: morphine CARPU-JECT 2 MG/1 ML DISP.SYRIN IVPUSH PRN (09:59)
[2025-03-17 10:09] LABS: CO2 25.0 mmol/L (21-32); GLUCOSE,RANDOM 133.0 mg/dL (74-106)
[2025-03-17 10:12] LABS: CREATININE 0.5 mg/dL (0.55-1.3); SGOT/AST 31.0 U/L (15-37); SGPT/ALT 27.0 U/L (13-61)
[2025-03-17 10:14] LABS: TOT PROT 5.8 g/dl (6.4-8.2)
[2025-03-17 11:14] LABS: ALK PHOS 51.0 U/L (45-117)
[2025-03-17] MEDS: IRON SUCROSE INJECTION 200 MG in SODIUM CHLORIDE 100 ML IVPB ONE (15:34)
[2025-03-17] MEDS ORDERED: diphenhydrAMINE HCL 25 MG CAPSULE (FP) PO PRN (20:24)
[2025-03-18 07:01] LABS: ABSOLUTE IMMATURE GRANULOCYTES 0.10 x10^3/uL (0.0-0.031); BASOPHILS # 0.07 x10^3/uL (0.01-0.08); EOSINOPHIL % 1.6 % (0.7-5.8); EOSINOPHILS # 0.14 x10^3/uL (0.04-0.36); MCHC 29.0 g/dl (32.2-35.5); MEAN CELL VOLUME 93.2 fl (79.4-94.8); MEAN PLT VOLUME 9.1 fl (9.4-12.3); MONOCYTE # 0.86 x10^3/uL (0.24-0.86); MONOCYTE % 10.0 % (4.7-12.5); RDW 24.7 % (12.4-16.4)
[2025-03-18 08:09] LABS: CO2 32.0 mmol/L (21-32); GLUCOSE,RANDOM 122.0 mg/dL (74-106)
[2025-03-18 08:39] LABS: ALK PHOS 54.0 U/L (45-117); CREATININE 0.6 mg/dL (0.55-1.3); SGOT/AST 22.0 U/L (15-37); SGPT/ALT 23.0 U/L (13-61); TOT PROT 5.8 g/dl (6.4-8.2)
[2025-03-18] MEDS: IRON SUCROSE INJECTION 200 MG in SODIUM CHLORIDE 100 ML IVPB ONE (12:37)
[2025-03-18 13:51] VITALS: BMI 21.1
[2025-03-18] MEDS: ACETAMINOPHEN 325 MG TABLET (FP) PO PRN (16:10)
[2025-03-19 06:57] LABS: ABSOLUTE IMMATURE GRANULOCYTES 0.14 x10^3/uL (0.0-0.031); BASOPHILS # 0.09 x10^3/uL (0.01-0.08); EOSINOPHIL % 2.4 % (0.7-5.8); EOSINOPHILS # 0.23 x10^3/uL (0.04-0.36); MCHC 29.6 g/dl (32.2-35.5); MEAN CELL VOLUME 92.9 fl (79.4-94.8); MEAN PLT VOLUME 9.1 fl (9.4-12.3); MONOCYTE # 0.70 x10^3/uL (0.24-0.86); MONOCYTE % 7.2 % (4.7-12.5); RDW 24.7 % (12.4-16.4)
[2025-03-19] MEDS ORDERED: ACETAMINOPHEN 1000 MG/100 ML BAG IVPB ONE (15:12)
[2025-03-19] MEDS ORDERED: PROPOFOL 20 ML ONE (15:29)
[2025-03-19] MEDS ORDERED: MIDAZOLAM HCL 2 MG/2 ML SINGLE DOSE VIAL ONE (15:30)
[2025-03-19] MEDS: BACITRACIN ZINC 15 GM TUBE TOPICAL OINTMENT TP ONE (15:45)
[2025-03-19] MEDS ORDERED: PEG 3350/NA SULF BICARB CL/KCL 4000 ML SOLN.RECON PO ONE (16:46)
[2025-03-19] MEDS ORDERED: diphenhydrAMINE HCL 25 MG CAPSULE (FP) PO PRN (16:46)
[2025-03-19] MEDS ORDERED: ACETAMINOPHEN 325 MG TABLET (FP) PO PRN (16:46)
[2025-03-19] MEDS ORDERED: BISACODYL 5 MG TABLET.DR (FP) PO ONE (17:00)
[2025-03-19] MEDS: PEG 3350/NA SULF BICARB CL/KCL 4000 ML SOLN.RECON PO ONE ×2 (17:24→18:41)
[2025-03-19] MEDS: ACETAMINOPHEN 1000 MG/100 ML BAG IVPB ONE (17:28)
[2025-03-19] MEDS: BISACODYL 5 MG TABLET.DR (FP) PO ONE (18:41)
[2025-03-19] MEDS: ATORVASTATIN CA 40 MG TABLET (FP) PO SCH (21:07)
[2025-03-19] MEDS: morphine CARPU-JECT 2 MG/1 ML DISP.SYRIN IVPUSH PRN (21:08)
[2025-03-19] MEDS: PANTOPRAZOLE SODIUM 40 MG VIAL IVPUSH SCH (21:08)
[2025-03-20 06:18] LABS: INR 1.1 (0.83-1.09); PROTHROMBIN TIME (PATIENT) 12.0 SEC (9.7-13.0)
[2025-03-20 06:30] LABS: ABSOLUTE IMMATURE GRANULOCYTES 0.04 x10^3/uL (0.0-0.031); BASOPHILS # 0.09 x10^3/uL (0.01-0.08); EOSINOPHIL % 3.3 % (0.7-5.8); EOSINOPHILS # 0.38 x10^3/uL (0.04-0.36); MCHC 29.5 g/dl (32.2-35.5); MEAN CELL VOLUME 94.1 fl (79.4-94.8); MEAN PLT VOLUME 9.3 fl (9.4-12.3); MONOCYTE # 0.67 x10^3/uL (0.24-0.86); MONOCYTE % 5.9 % (4.7-12.5); RDW 24.6 % (12.4-16.4)
[2025-03-20 06:31] LABS: CO2 30.0 mmol/L (21-32); GLUCOSE,RANDOM 101.0 mg/dL (74-106)
[2025-03-20 06:35] LABS: CREATININE 0.5 mg/dL (0.55-1.3); SGOT/AST 20.0 U/L (15-37); SGPT/ALT 18.0 U/L (13-61)
[2025-03-20 06:36] LABS: TOT PROT 5.6 g/dl (6.4-8.2)
[2025-03-20 06:37] LABS: ALK PHOS 62.0 U/L (45-117)
[2025-03-20] MEDS: ASPIRIN COATED 81 MG TABLET.EC PO SCH (09:30)
[2025-03-20 11:29] VITALS: RESP 18
[2025-03-20] MEDS: IRON SUCROSE INJECTION 200 MG in SODIUM CHLORIDE 100 ML IVPB ONE (12:31)
[2025-03-20 14:12] VITALS: BP 157/64; PULSE 74; TEMP 98.1
[2025-03-20] MEDS: CLOPIDOGREL BISULFATE 75 MG TABLET (FP) PO ONE (15:14)
[2025-03-21] MEDS ORDERED: CLOPIDOGREL BISULFATE 75 MG TABLET (FP) PO SCH (10:00)
== END 2025-03-20 17:51 | disposition home or self-care (01) | DRG 180 ==
LOC: JER 16:19 → JERBED 17:00 → J4S 03-17 03:24
PROVIDERS: ADMIT Hospitalist; ATTEND Internal Medicine
PROC: 30233N1 Transfusion of Nonautologous Red Blood Cells into Peripheral Vein, Percutaneous Approach (ICD-10-PCS; 2025-03-16)
PROC: 0HRLXK4 Replacement of Left Lower Leg Skin with Nonautologous Tissue Substitute, Partial Thickness, External Approach (ICD-10-PCS; 2025-03-19)
PROC: 0JBP0ZZ Excision of Left Lower Leg Subcutaneous Tissue and Fascia, Open Approach (ICD-10-PCS; principal; 2025-03-19 11:00)
PROC: 0DB98ZX Excision of Duodenum, Via Natural or Artificial Opening Endoscopic, Diagnostic (ICD-10-PCS; 2025-03-20)
PROC: 0DB78ZX Excision of Stomach, Pylorus, Via Natural or Artificial Opening Endoscopic, Diagnostic (ICD-10-PCS; 2025-03-20)
PROC: 0DB68ZX Excision of Stomach, Via Natural or Artificial Opening Endoscopic, Diagnostic (ICD-10-PCS; 2025-03-20)
PROC: 0DJD8ZZ Inspection of Lower Intestinal Tract, Via Natural or Artificial Opening Endoscopic (ICD-10-PCS; 2025-03-20)
DX: E11.51 Type 2 diabetes mellitus with diabetic peripheral angiopathy without gangrene (principal); D62 Acute posthemorrhagic anemia; I10 Essential (primary) hypertension; K29.70 Gastritis, unspecified, without bleeding; E78.5 Hyperlipidemia, unspecified
CPT/HCPCS: 36415; 36430; 75635-TC; 80048; 80053; 82272; 82962; 83735; 84100; 85025; 85027; 85610; 85730; 86803; 86850; 86900; 86901; 86922; 87389; 88305-TC; 88342-TC; 93005; 93010; 94760; 99285-25; J1756; P9058; Q4196